=== PATIENT | female | born 1960 | race Caucasian/White ===

== ENCOUNTER → 2016-11-13 | Outpatient (CLI) | payer OTHER ==
[2016-11-13 13:36] LABS: ALBUMIN 3.5 GM/DL (3.2-5.2); ALBUMIN/GLOBULIN RATIO 1.09 (1.00-1.93); ALKALINE PHOSPHATASE 75 U/L (45-117); ALT/SGPT 23 U/L (12-78); ANION GAP 8 MEQ/L (8-16); AST/SGOT 9 U/L (15-37); BILIRUBIN,TOTAL 0.4 MG/DL (0.2-1.0); BLOOD UREA NITROGEN 14 MG/DL (7-18); CALCIUM LEVEL 8.4 MG/DL (8.5-10.1); CARBON DIOXIDE LEVEL 28 MEQ/L (21-32); CHLORIDE LEVEL 109 MEQ/L (98-107); CHOLESTEROL LEVEL 238 MG/DL (< 200); CREATININE FOR GFR 0.72 MG/DL (0.55-1.02); FREE T4 0.95 NG/DL (0.76-1.46); GLOMERULAR FILTRATION RATE > 60.0 (>51); GLUCOSE, FASTING 88 MG/DL (70-105); POTASSIUM SERUM 4.4 MEQ/L (3.5-5.1); SODIUM LEVEL 145 MEQ/L (136-145); TOTAL PROTEIN 6.7 GM/DL (6.4-8.2)
[2016-11-13 20:57] LABS: FOLLICLE STIMULATING HORMONE 37.8 mIU/mL; LUTEINIZING HORMONE 18.6 mIU/mL
== END ==
LOC: M WUC 10:34
PROVIDERS: ATTEND Nurse Practitioner Women's Health
DX: N95.8 Other specified menopausal and perimenopausal disorders (principal); R53.83 Other fatigue; F41.9 Anxiety disorder, unspecified; E66.01 Morbid (severe) obesity due to excess calories

== ENCOUNTER 2016-12-21 10:18 | Emergency (ER) | payer OTHER ==
[2016-12-21] MEDS ORDERED: KETOROLAC 30 MG/ML VIAL (J1885) As Ordered ONE (11:26)
--- NOTE | 2016-12-21 12:53 | REP ---
Clinical: Trauma. Technique: AP, lateral, bilateral oblique views of the left foot. Findings: Age-related degenerative changes are appreciated. No acute fracture or dislocation identified. Impression: Degenerative changes. No acute fracture or dislocation appreciated. Signed by Keith Cuadra MD 12/21/2016 12:45 P
--- NOTE | 2016-12-21 12:54 | REP ---
Clinical: Trauma. Technique: AP, lateral, bilateral oblique views of the left ankle. Findings: Age-related degenerative changes are appreciated including small to moderate calcaneal heal spur. No acute fracture dislocation. Impression: Age-related degenerative changes without obvious acute fracture or dislocation Signed by Keith Cuadra MD 12/21/2016 12:45 P
--- NOTE | 2016-12-21 13:49 | EDDOCDS ---
Nurse's Notes [facility] Name: Christina Payan Age: 55 yrs Sex: Female : 1960 Arrival Date: 12/21/2016 Time: 10:18 Bed TR8 Private MD: NO PRIMARY PHYSICIAN, . Diagnosis: Sprain of ankle-Left;Other sprain of left foot Presentation: 12/21 10:35 Presenting complaint: Patient states: Fell last night (mechanical fall) injuring jo3 Achilles tendon on left foot. Adult Sepsis Screening: The patient does not have new or worsening altered mentation. Patient's respiratory rate is less than 22. Systolic blood pressure is greater than 100. Patient has a qSOFA score of 0- Negative Sepsis Screen. Suicide/Homicide risk assessment- the patient denies having any suicidal and/or homicidal ideations and does not present with any other emotional, behavioral or mental health complaints. 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 Transition of care: patient was not received from another setting of care. 10:35 Acuity: DEENA Level 4 jo3 10:35 Method Of Arrival: Walkin/Carried/Asstd jo3 Triage Assessment: 10:38 General: Appears in no apparent distress, comfortable, Behavior is appropriate for age, jo3 cooperative. Pain: Pain currently is 8 out of 10 on a pain scale. At worst was 9 out of 10 on a pain scale. HIV screening NA for this visit Offered previously. Neurological: Level of Consciousness is awake, alert, Oriented to person, place, time. Respiratory: No deficits noted. Airway is patent Respiratory effort is even, unlabored. Derm: Skin is pink, warm & dry. 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 Protonix 80 mg Oral TbEC once daily - PMHx: GERD; - PSHx: left knee; Laparoscopy; Tonsillectomy; Rhinoplasty; Adenoidectomy; Hysterectomy; - Social history: Smoking status: Patient states was never smoker of tobacco. No barriers to communication noted, The patient speaks fluent Puerto Rican, Speaks appropriately for age. - Family history: Not pertinent. - : The pt / caregiver states he / she is not on anticoagulants. Home medication list is obtained from the patient. - Exposure Risk Screening:: None identified. Screenin:57 Screening information is obtained from the patient. Fall risk: No risks identified. ck1 Assistance ADL's: requires no assistance with activities of daily living. Abuse/DV Screen: The patient / caregiver reports he/she is: not in a situation that causes fear, pain or injury. Nutritional screening: No deficits noted. Advance Directives: Currently, there is no health care proxy. home support is adequate. Assessment: 12:57 General: Patient reporting increased pain to left calf. Provider aware. ck1 13:46 General: Appears in no apparent distress, comfortable, Behavior is appropriate for age, jo3 cooperative. Neurological: No deficits noted. Level of Consciousness is awake, alert, Oriented to person, place, time. Respiratory: Airway is patent Respiratory effort is even, unlabored. Derm: Skin is pink, warm & dry. Vital Signs: 10:20 BP 123 / 67; Pulse 78; Resp 18; Temp 98.3(O); Pulse Ox 98% on R/A; Weight 105.69 kg ct3 (R); Height 5 ft. 5 in. (165.10 cm) (R); Pain 7/10; 13:40 BP 132 / 70; Pulse 80; Resp 18; Temp 97.8(T); Pulse Ox 98% on R/A; Pain 5/10; jb5 10:20 Body Mass Index 38.77 (105.69 kg, 165.10 cm) ct3 Vitals: 10:20 Log In Time: December 21, 2016 at 10:17. ct3 ED Course: 10:20 Patient visited by Nona Madden PCA. ct3 10:20 NO PRIMARY PHYSICIAN, . is Private Physician. ct3 10:20 Patient moved to Waiting ct3 10:21 Patient moved to Pre RCE ct3 10:37 Triage Initiated jo3 10:40 Patient moved to Triage 1 jo3 10:55 Patient visited by Mami Silverman PCA. jb5 10:58 Madelyn Villasenor PA-C is PHCP. ef1 10:59 Francisco Carreon MD is Attending Physician. ef1 10:59 Patient visited by Madelyn Villasenor PA-C. ef1 11:22 Patient visited by Madelyn Vlilasenor PA-C. ef1 11:33 Patient moved to TR1 jb5 11:57 Patient visited by Madelyn Villasenor PA-C. ef1 12:13 [facility] Payment Agreement was scanned into [employer] and attached to record. jp5 12:31 Patient visited by Madelyn Villasenor PA-C. ef1 12:57 The patient / caregiver is instructed regarding the plan of care and ED course. ck1 12:57 No IV's were initiated during this patient's visit. No procedures done that require ck1 assistance. 13:02 Patient visited by Madelyn Villasenor PA-C. ef1 13:15 [facility]. ef1 13:15 [facility] is Referral Physician. ef1 13:23 Patient moved to PR ck1 13:23 Foot, Complete Returned. EDMS 13:23 Ankle, Complete Returned. EDMS 13:41 Patient visited by Mami Silverman PCA. jb5 13:47 Patient moved to TR8 jb5 Administered Medications: 11:34 Drug: ketorolac 60 mg [ketorolac 30 mg/mL (1 mL) injection solution (2 mL)] Route: IM; jo3 Site: right gluteus; Order Results: Radiology Order: Foot, Complete Test: Foot, Complete REASON FOR EXAMINATION: Trauma; Clinical: Trauma.; ; Technique: AP, lateral, bilateral oblique views of the left foot.; ; Findings:; Age-related degenerative changes are appreciated. No acute fracture or; dislocation identified.; ; Impression:; Degenerative changes. No acute fracture or dislocation appreciated.; ; ; Signed by; Keith Cuadra MD 12/21/2016 12:45 P; Radiology Order: Ankle, Complete Test: Ankle, Complete REASON FOR EXAMINATION: Trauma; Clinical: Trauma.; ; Technique: AP, lateral, bilateral oblique views of the left ankle.; ; Findings:; Age-related degenerative changes are appreciated including small to moderate; calcaneal heal spur. No acute fracture dislocation.; ; Impression:; Age-related degenerative changes without obvious acute fracture or dislocation; ; ; Signed by; Keith Cuadra MD 12/21/2016 12:45 P; Outcome: 13:15 Discharge ordered by Provider. ef1 13:46 Discharge Assessment: Patient awake, alert and oriented x 3. No cognitive and/or jo3 functional deficits noted. Patient verbalized understanding of disposition instructions. patient administered narcotics - no. The following High Risk Discharge criteria are identified: None. Discharged to home ambulatory, with crutches. Condition: stable. Discharge instructions given to patient, Instructed on discharge instructions, follow up and referral plans. medication usage, crutch walking. No special radiology studies were completed. Property sent home with patient. 13:47 Patient left the ED. jo3 Signatures: Dispatcher [employer] EDUT Nesha MotaRN RN ck1 Mami Silverman, SECURITY PROJECT MANAGER SECURITY PROJECT MANAGER jb5 Do HagerRN RN jo3 Madelyn Villasenor, PA-C PA-C ef1 Nona Madden, SECURITY PROJECT MANAGER SECURITY PROJECT MANAGER ct3 Thomas Ospina jp5 Corrections: (The following items were deleted from the chart) 12:57 12:30 Pain: ck1 ck1 MTDD
--- NOTE | 2016-12-21 13:49 | EDDOCDS ---
Physician Documentation [facility] Name: Christina Payan Age: 55 yrs Sex: Female : 1960 Arrival Date: 12/21/2016 Time: 10:18 Bed TR8 Private MD: NO PRIMARY PHYSICIAN, . Disposition: 12/21/16 13:15 Discharged to Home/Self Care. Impression: Sprain of ankle - Left, Other sprain of left foot. - Condition is Stable. - Discharge Instructions: Ankle Sprain, Ihko-by-Ilht, Finger Sprain, Iwzs-da-Vlsc. - Prescriptions for Mobic 7.5 mg Oral Tablet - take 1 tablet by ORAL route once daily take with food; 20 tablet. - Medication Reconciliation, Local Pharmacy Hours, Referral List Call for Appointment form. - Follow up: [facility]; When: 1 - 2 days; Reason: Further diagnostic work-up, Recheck today's complaints, Continuance of care. Follow [facility]: [facility] ; When: 1 - 2 days; Reason: Recheck today's complaints, Continuance of care. Follow up: Emergency Department; Reason: Worsening of conditions. - Problem is new. - Symptoms have improved. Historical: - Allergies: Avelox; Compazine; Levaquin; Most antiemetic, except Zofran; Demerol; - Home Meds: 1. Protonix 80 mg Oral TbEC once daily - PMHx: GERD; - PSHx: left knee; Laparoscopy; Tonsillectomy; Rhinoplasty; Adenoidectomy; Hysterectomy; - Social history: Smoking status: Patient states was never smoker of tobacco. No barriers to communication noted, The patient speaks fluent Bengali, Speaks appropriately for age. - Family history: Not pertinent. - : The pt / caregiver states he / she is not on anticoagulants. Home medication list is obtained from the patient. - Exposure Risk Screening:: None identified. 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 5 in. (165.10 cm) (R); Pain 7/10; 13:40 BP 132 / 70; Pulse 80; Resp 18; Temp 97.8(T); Pulse Ox 98% on R/A; Pain 5/10; jb5 10:20 Body Mass Index 38.77 (105.69 kg, 165.10 cm) ct3 Procedures: 13:14 Fracture care/splinting: Splint applied to left Achilles using Air Cast, applied by ef1 tech. Examined by me, post splint application: neurovascular intact, 2+ distal pulses palpable, brisk capillary refill noted, Patient tolerated well. MDM: 11:23 Ice Pack ordered. ef1 11:23 ketorolac 60 mg IM once ordered. ef1 11:24 Foot, Complete Ordered. EDMS 11:24 Ankle, Complete Ordered. EDMS 12:11 Financial registration complete. mm15 12:13 [facility] Payment Agreement was scanned into [employer] and attached to record. jp5 12:13 Undo -Financial registration. jp5 12:13 Financial registration complete. jp5 13:15 Apply Air Cast to Patient. ordered. ef1 13:15 Crutches ordered. ef1 Administered Medications: 11:34 Drug: ketorolac 60 mg [ketorolac 30 mg/mL (1 mL) injection solution (2 mL)] Route: IM; jo3 Site: right gluteus; Signatures: Dispatcher [employer] EDNesha Brandon,RN RN ck1 Do Hager RN RN jo3 Madelyn Villasenor, PA-C PA-Jonathan ef1 Annalisa Renteria mm15 Thomas Ospina jp5 The chart was reviewed and I authenticate all verbal orders and agree with the evaluation and treatment provided.Attachments: 12:13 [facility] Payment Agreement jp5 MTDD
--- NOTE | 2016-12-23 14:48 | EDDOCDS ---
Physician Documentation [facility] Name: Christina Payan Age: 55 yrs Sex: Female : 1960 Arrival Date: 12/21/2016 Time: 10:18 Bed TR8 Private MD: NO PRIMARY PHYSICIAN, . Disposition: 12/21/16 13:15 Discharged to Home/Self Care. Impression: Sprain of ankle - Left, Other sprain of left foot. - Condition is Stable. - Discharge Instructions: Ankle Sprain, Pjur-bc-Ftno, Finger Sprain, Aatp-vc-Vwjz. - Prescriptions for Mobic 7.5 mg Oral Tablet - take 1 tablet by ORAL route once daily take with food; 20 tablet. - Medication Reconciliation, Local Pharmacy Hours, Referral List Call for Appointment form. - Follow up: [facility]; When: 1 - 2 days; Reason: Further diagnostic work-up, Recheck today's complaints, Continuance of care. Follow [facility]: [facility] ; When: 1 - 2 days; Reason: Recheck today's complaints, Continuance of care. Follow up: Emergency Department; Reason: Worsening of conditions. - Problem is new. - Symptoms have improved. Historical: - Allergies: Avelox; Compazine; Levaquin; Most antiemetic, except Zofran; Demerol; - Home Meds: 1. Protonix 80 mg Oral TbEC once daily - PMHx: GERD; - PSHx: left knee; Laparoscopy; Tonsillectomy; Rhinoplasty; Adenoidectomy; Hysterectomy; - Social history: Smoking status: Patient states was never smoker of tobacco. No barriers to communication noted, The patient speaks fluent Telugu, Speaks appropriately for age. - Family history: Not pertinent. - : The pt / caregiver states he / she is not on anticoagulants. Home medication list is obtained from the patient. - Exposure Risk Screening:: None identified. 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 5 in. (165.10 cm) (R); Pain 7/10; 13:40 BP 132 / 70; Pulse 80; Resp 18; Temp 97.8(T); Pulse Ox 98% on R/A; Pain 5/10; jb5 10:20 Body Mass Index 38.77 (105.69 kg, 165.10 cm) ct3 Procedures: 13:14 Fracture care/splinting: Splint applied to left Achilles using Air Cast, applied by ef1 tech. Examined by me, post splint application: neurovascular intact, 2+ distal pulses palpable, brisk capillary refill noted, Patient tolerated well. MDM: 11:23 Ice Pack ordered. ef1 11:23 ketorolac 60 mg IM once ordered. ef1 11:24 Foot, Complete Ordered. EDMS 11:24 Ankle, Complete Ordered. EDMS 12:11 Financial registration complete. mm15 12:13 [facility] Payment Agreement was scanned into [employer] and attached to record. jp5 12:13 Undo -Financial registration. jp5 12:13 Financial registration complete. jp5 13:15 Apply Air Cast to Patient. ordered. ef1 13:15 Crutches ordered. ef1 15:38 T-Sheet-- Draft Copy was scanned into [employer] and attached to record. gb 15:39 Radiology Report was scanned into [employer] and attached to record. gb Administered Medications: 11:34 Drug: ketorolac 60 mg [ketorolac 30 mg/mL (1 mL) injection solution (2 mL)] Route: IM; jo3 Site: right gluteus; Signatures: Dispatcher [employer] EDNC Shazia Denson, Reg Reg gb Nesha MotaRN RN ck1 Do Hager RN RN jo3 Madelyn Villasenor, PA-Jonathan PA-Jonathan ef1 Annalisa Renteria mm15 Thomas Ospina jp5 The chart was reviewed and I authenticate all verbal orders and agree with the evaluation and treatment provided.Attachments: 12:13 [facility] Payment Agreement jp5 15:38 T-Sheet-- Draft Copy gb Chart Complete MTDD
--- NOTE | 2016-12-23 14:48 | EDDOCDS ---
Physician Documentation [facility] Name: Christina Payan Age: 55 yrs Sex: Female : 1960 Arrival Date: 12/21/2016 Time: 10:18 Bed TR8 Private MD: NO PRIMARY PHYSICIAN, . Disposition: 12/21/16 13:15 Discharged to Home/Self Care. Impression: Sprain of ankle - Left, Other sprain of left foot. - Condition is Stable. - Discharge Instructions: Ankle Sprain, Vrpx-cb-Byxy, Finger Sprain, Ouba-dv-Qria. - Prescriptions for Mobic 7.5 mg Oral Tablet - take 1 tablet by ORAL route once daily take with food; 20 tablet. - Medication Reconciliation, Local Pharmacy Hours, Referral List Call for Appointment form. - Follow up: [facility]; When: 1 - 2 days; Reason: Further diagnostic work-up, Recheck today's complaints, Continuance of care. Follow up: [facility] ; When: 1 - 2 days; Reason: Recheck today's complaints, Continuance of care. Follow up: Emergency Department; Reason: Worsening of conditions. - Problem is new. - Symptoms have improved. Historical: - Allergies: Avelox; Compazine; Levaquin; Most antiemetic, except Zofran; Demerol; - Home Meds: 1. Protonix 80 mg Oral TbEC once daily - PMHx: GERD; - PSHx: left knee; Laparoscopy; Tonsillectomy; Rhinoplasty; Adenoidectomy; Hysterectomy; - Social history: Smoking status: Patient states was never smoker of tobacco. No barriers to communication noted, The patient speaks fluent Lao, Speaks appropriately for age. - Family history: Not pertinent. - : The pt / caregiver states he / she is not on anticoagulants. Home medication list is obtained from the patient. - Exposure Risk Screening:: None identified. 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 5 in. (165.10 cm) (R); Pain 7/10; 13:40 BP 132 / 70; Pulse 80; Resp 18; Temp 97.8(T); Pulse Ox 98% on R/A; Pain 5/10; jb5 10:20 Body Mass Index 38.77 (105.69 kg, 165.10 cm) ct3 Procedures: 13:14 Fracture care/splinting: Splint applied to left Achilles using Air Cast, applied by ef1 tech. Examined by me, post splint application: neurovascular intact, 2+ distal pulses palpable, brisk capillary refill noted, Patient tolerated well. MDM: 11:23 Ice Pack ordered. ef1 11:23 ketorolac 60 mg IM once ordered. ef1 11:24 Foot, Complete Ordered. EDMS 11:24 Ankle, Complete Ordered. EDMS 12:11 Financial registration complete. mm15 12:13 [facility] Payment Agreement was scanned into [employer] and attached to record. jp5 12:13 Undo -Financial registration. jp5 12:13 Financial registration complete. jp5 13:15 Apply Air Cast to Patient. ordered. ef1 13:15 Crutches ordered. ef1 15:38 T-Sheet-- Draft Copy was scanned into [employer] and attached to record. gb 15:39 Radiology Report was scanned into [employer] and attached to record. gb Administered Medications: 11:34 Drug: ketorolac 60 mg [ketorolac 30 mg/mL (1 mL) injection solution (2 mL)] Route: IM; jo3 Site: right gluteus; Signatures: Dispatcher [employer] EDNC Shazia Denson, Reg Reg gb Nesha MotaRN RN ck1 Do Hager RN RN jo3 Madelyn Villasenor, PA-Jonathan PA-Jonathan ef1 Annalisa Renteria mm15 Thomas Ospina jp5 The chart was reviewed and I authenticate all verbal orders and agree with the evaluation and treatment provided.Attachments: 12:13 [facility] Payment Agreement jp5 15:38 T-Sheet-- Draft Copy gb Chart Complete MTDD
--- NOTE | 2016-12-23 14:48 | EDDOCDS ---
Nurse's Notes [facility] Name: Christina Payan Age: 55 yrs Sex: Female : 1960 Arrival Date: 12/21/2016 Time: 10:18 Bed TR8 Private MD: NO PRIMARY PHYSICIAN, . Diagnosis: Sprain of ankle-Left;Other sprain of left foot Presentation: 12/21 10:35 Presenting complaint: Patient states: Fell last night (mechanical fall) injuring jo3 Achilles tendon on left foot. Adult Sepsis Screening: The patient does not have new or worsening altered mentation. Patient's respiratory rate is less than 22. Systolic blood pressure is greater than 100. Patient has a qSOFA score of 0- Negative Sepsis Screen. Suicide/Homicide risk assessment- the patient denies having any suicidal and/or homicidal ideations and does not present with any other emotional, behavioral or mental health complaints. 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 Transition of care: patient was not received from another setting of care. 10:35 Acuity: DEENA Level 4 jo3 10:35 Method Of Arrival: Walkin/Carried/Asstd jo3 Triage Assessment: 10:38 General: Appears in no apparent distress, comfortable, Behavior is appropriate for age, jo3 cooperative. Pain: Pain currently is 8 out of 10 on a pain scale. At worst was 9 out of 10 on a pain scale. HIV screening NA for this visit Offered previously. Neurological: Level of Consciousness is awake, alert, Oriented to person, place, time. Respiratory: No deficits noted. Airway is patent Respiratory effort is even, unlabored. Derm: Skin is pink, warm & dry. 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 Protonix 80 mg Oral TbEC once daily - PMHx: GERD; - PSHx: left knee; Laparoscopy; Tonsillectomy; Rhinoplasty; Adenoidectomy; Hysterectomy; - Social history: Smoking status: Patient states was never smoker of tobacco. No barriers to communication noted, The patient speaks fluent Omani, Speaks appropriately for age. - Family history: Not pertinent. - : The pt / caregiver states he / she is not on anticoagulants. Home medication list is obtained from the patient. - Exposure Risk Screening:: None identified. Screenin:57 Screening information is obtained from the patient. Fall risk: No risks identified. ck1 Assistance ADL's: requires no assistance with activities of daily living. Abuse/DV Screen: The patient / caregiver reports he/she is: not in a situation that causes fear, pain or injury. Nutritional screening: No deficits noted. Advance Directives: Currently, there is no health care proxy. home support is adequate. Assessment: 12:57 General: Patient reporting increased pain to left calf. Provider aware. ck1 13:46 General: Appears in no apparent distress, comfortable, Behavior is appropriate for age, jo3 cooperative. Neurological: No deficits noted. Level of Consciousness is awake, alert, Oriented to person, place, time. Respiratory: Airway is patent Respiratory effort is even, unlabored. Derm: Skin is pink, warm & dry. Vital Signs: 10:20 BP 123 / 67; Pulse 78; Resp 18; Temp 98.3(O); Pulse Ox 98% on R/A; Weight 105.69 kg ct3 (R); Height 5 ft. 5 in. (165.10 cm) (R); Pain 7/10; 13:40 BP 132 / 70; Pulse 80; Resp 18; Temp 97.8(T); Pulse Ox 98% on R/A; Pain 5/10; jb5 10:20 Body Mass Index 38.77 (105.69 kg, 165.10 cm) ct3 Vitals: 10:20 Log In Time: December 21, 2016 at 10:17. ct3 ED Course: 10:20 Patient visited by Nona Madden PCA. ct3 10:20 NO PRIMARY PHYSICIAN, . is Private Physician. ct3 10:20 Patient moved to Waiting ct3 10:21 Patient moved to Pre RCE ct3 10:37 Triage Initiated jo3 10:40 Patient moved to Triage 1 jo3 10:55 Patient visited by Mami Silverman PCA. jb5 10:58 Madelyn Villasenor PA-C is PHCP. ef1 10:59 Francisco Carreon MD is Attending Physician. ef1 10:59 Patient visited by Madelyn Villasenor PA-C. ef1 11:22 Patient visited by Madelyn Villasenor PA-C. ef1 11:33 Patient moved to TR1 jb5 11:57 Patient visited by Madelyn Villasenor PA-C. ef1 12:13 [facility] Payment Agreement was scanned into [employer] and attached to record. jp5 12:31 Patient visited by Madelyn Villasenor PA-C. ef1 12:57 The patient / caregiver is instructed regarding the plan of care and ED course. ck1 12:57 No IV's were initiated during this patient's visit. No procedures done that require ck1 assistance. 13:02 Patient visited by Madelyn Villasenor PA-C. ef1 13:15 [facility]. ef1 13:15 [facility] is Referral Physician. ef1 13:23 Patient moved to PR ck1 13:23 Foot, Complete Returned. EDMS 13:23 Ankle, Complete Returned. EDMS 13:41 Patient visited by Mami Silverman PCA. jb5 13:47 Patient moved to TR8 jb5 15:38 T-Sheet-- Draft Copy was scanned into [employer] and attached to record. gb 15:39 Radiology Report was scanned into [employer] and attached to record. gb Administered Medications: 11:34 Drug: ketorolac 60 mg [ketorolac 30 mg/mL (1 mL) injection solution (2 mL)] Route: IM; jo3 Site: right gluteus; Order Results: Radiology Order: Foot, Complete Test: Foot, Complete REASON FOR EXAMINATION: Trauma; Clinical: Trauma.; ; Technique: AP, lateral, bilateral oblique views of the left foot.; ; Findings:; Age-related degenerative changes are appreciated. No acute fracture or; dislocation identified.; ; Impression:; Degenerative changes. No acute fracture or dislocation appreciated.; ; ; Signed by; Keith Cuadra MD 12/21/2016 12:45 P; Radiology Order: Ankle, Complete Test: Ankle, Complete REASON FOR EXAMINATION: Trauma; Clinical: Trauma.; ; Technique: AP, lateral, bilateral oblique views of the left ankle.; ; Findings:; Age-related degenerative changes are appreciated including small to moderate; calcaneal heal spur. No acute fracture dislocation.; ; Impression:; Age-related degenerative changes without obvious acute fracture or dislocation; ; ; Signed by; Keith Cuadra MD 12/21/2016 12:45 P; Outcome: 13:15 Discharge ordered by Provider. ef1 13:46 Discharge Assessment: Patient awake, alert and oriented x 3. No cognitive and/or jo3 functional deficits noted. Patient verbalized understanding of disposition instructions. patient administered narcotics - no. The following High Risk Discharge criteria are identified: None. Discharged to home ambulatory, with crutches. Condition: stable. Discharge instructions given to patient, Instructed on discharge instructions, follow up and referral plans. medication usage, crutch walking. No special radiology studies were completed. Property sent home with patient. 13:47 Patient left the ED. jo3 Signatures: Dispatcher [employer] EDMS Shazia Denson, Reg Reg Nesha Lemus,RN RN ck1 Mami Silverman, RECOVERY MANAGER RECOVERY MANAGER jb5 Do Hager RN RN jo3 Madelyn Villasenor, PA-C PA-C ef1 Nona Madden, RECOVERY MANAGER RECOVERY MANAGER ct3 Thomas Ospina jp5 Corrections: (The following items were deleted from the chart) 12:57 12:30 Pain: ck1 ck1 Chart Complete MTDD
== END 2016-12-21 13:47 | disposition home or self-care (01) ==
LOC: M ED 10:18
DX: S93.402A Sprain of unspecified ligament of left ankle, initial encounter (principal); S93.602A Unspecified sprain of left foot, initial encounter; X58.XXXA Exposure to other specified factors, initial encounter; Y92.019 Unspecified place in single-family (private) house as the place of occurrence of the external cause; Y93.89 Activity, other specified; Y99.8 Other external cause status; K21.9 Gastro-esophageal reflux disease without esophagitis; Z79.899 Other long term (current) drug therapy; Z88.8 Allergy status to other drugs, medicaments and biological substances
CPT/HCPCS: 73610; 73630; 96372; 99283; J1885

== ENCOUNTER → 2017-01-01 | Outpatient (CLI) | payer OTHER ==
--- NOTE | 2017-01-02 13:07 | SLEEPCENT ---
DATE OF PROCEDURE: 01/01/2017 ORDERED BY: Dr. Albert Nocturnal polysomnography was performed for retitration of pressure therapy. For testing, a ResMed Quattro FX full face mask extra small size was used and 13 cm of water pressure were applied to the circuit and the lights were extinguished. 7 hours and 5 minutes of data were reviewed. There were 206 minutes of sleep identified. Sleep latency was prolonged at 41 minutes. Rapid eye movement (REM) latency was likewise prolonged at 188 minutes. Sleep architecture showed fragmentation and poor progression. There was 1 REM period appreciated around 3:00 a.m. with periods of wake that resulted in a reduced sleep efficiency of 49.6%. REM time was reduced and there was no N3 sleep seen. The patient's electrocardiogram (EKG) showed a sinus rhythm with an average heart rate of 65 beats per minute. Heart rate ranged 55 to 90 beats per minute. Electroencephalogram (EEG) showed some mild coarsening in background. No focal events were identified. Respiratory events were fully palliated with CPAP at a pressure of 13 cm. There was no significant snoring nor arousals from respiratory events. Significant limb activity was however appreciated and many of the arousals and episodes of fragmentation could be tied to limb events. Limb movement arousal index was 23.5. Oxygen saturations with CPAP were 90% plus. IMPRESSION: 1. Obstructive sleep apnea syndrome (G47.33). 2. Periodic limb movement disorder (G47.61), limb movement arousal index 25.3. RECOMMENDATION: Nightly use of pressure therapy at 13 cm of water was sufficient to address the patient's respiratory events. Interventions to reduce the frequency or arousal from limb activity will likely be needed to improve continuity in sleep.
== END ==
LOC: M SLEEP 19:51
PROVIDERS: ATTEND Internal Medicine Pulmonary Disease
DX: G47.33 Obstructive sleep apnea (adult) (pediatric) (principal)

== ENCOUNTER 2017-01-04 16:34 | Emergency (ER) | payer OTHER ==
[~2017-01-04] VITALS: Ht 165.1 cm; Wt 109.3 kg
[2017-01-04] MEDS ORDERED: PROT1TAB2 PO (16:55)
[2017-01-04] MEDS ORDERED: ASPIRIN 81 MG CHEW TABLET PO ONE (18:00)
[2017-01-04 18:04] LABS: BASO % 0.6 % (0.0-1.0); EOS # 0.1 K/mm3 (0.0-0.50); EOS % 1.6 % (0.0-3.0); LARGE UNSTAINED CELL # 0.1 K/mm3 (0.0-0.4); LARGE UNSTAINED CELL % 1.3 % (0.0-4.0); LYMPH # 2.3 K/mm3 (1.5-4.5); LYMPH % 31.3 % (24.0-44.0); MEAN CORPUSCULAR HEMOGLOBIN 28.9 pg (27.0-33.0); MEAN CORPUSCULAR HGB CONC 33.4 g/dl (32.0-36.5); MEAN CORPUSCULAR VOLUME 86.5 fl (80.0-96.0); MONO # 0.2 K/mm3 (0.0-0.8); MONO % 2.8 % (0.0-5.0); NEUTROPHILS # 4.5 K/mm3 (1.8-7.7); NEUTROPHILS % 62.4 % (36.0-66.0); PLATELET COUNT, AUTOMATED 277 k/mm3 (150-450); RED CELL DISTRIBUTION WIDTH 12.6 % (11.5-14.5); WHITE BLOOD COUNT 7.2 K/mm3 (4.0-10.0)
[2017-01-04 18:36] LABS: ALBUMIN 3.9 GM/DL (3.2-5.2); ALBUMIN/GLOBULIN RATIO 1.26 (1.00-1.93); ALKALINE PHOSPHATASE 82 U/L (45-117); ALT/SGPT 25 U/L (12-78); ANION GAP 9 MEQ/L (8-16); AST/SGOT 18 U/L (15-37); BILIRUBIN,DIRECT 0.1 MG/DL (0.0-0.2); BILIRUBIN,TOTAL 0.5 MG/DL (0.2-1.0); BLOOD UREA NITROGEN 10 MG/DL (7-18); CALCIUM LEVEL 8.3 MG/DL (8.5-10.1); CARBON DIOXIDE LEVEL 28 MEQ/L (21-32); CHLORIDE LEVEL 106 MEQ/L (98-107); CREATININE FOR GFR 0.81 MG/DL (0.55-1.02); FREE T4 1.16 NG/DL (0.76-1.46); GLOMERULAR FILTRATION RATE > 60.0 (>51); GLUCOSE, FASTING 83 MG/DL (70-105); SODIUM LEVEL 143 MEQ/L (136-145)
--- NOTE | 2017-01-04 18:45 | REP ---
CHEST, PORTABLE: HISTORY: Chest pain. COMPARISON: 10/18/2015 FINDINGS: The technique utilized in obtaining the radiograph has magnified the cardiac silhouette and accentuated the interstitial markings. The superior mediastinal structures are midline. The cardiac silhouette is unremarkable in size, shape, and position. The diaphragmatic surfaces of the lungs are regular, and the costophrenic angles are clear. The pulmonary muller are clear. The imaged osseous structures are intact. IMPRESSION: There is no acute cardiopulmonary disease. No significant change from the prior exam. Signed by Anuj Cowan DO 01/04/2017 07:09 P
[2017-01-04] MEDS ORDERED: ISOVUE-370 76% 100ML VIAL (Q9967) As Ordered ONE (19:05)
--- NOTE | 2017-01-04 19:44 | REP ---
CT ANGIO CHEST: HISTORY: Dyspnea and chest pain. Possible pulmonary embolus. COMPARISON: 05/11/2011. CONTRAST: 100 mL Isovue-370. There is excellent visualization of the pulmonary arterial vasculature. There are no focal filling defects present that would be considered consistent with pulmonary emboli. There is no mediastinal or hilar adenopathy. There are no pleural or pericardial effusions. The imaged upper abdomen is within normal limits. The imaged osseous structures are within normal limits. Evaluation of the lung muller are clear and unchanged from the prior examination showing no abnormal nodules, masses, or opacities. IMPRESSION: CT findings are within normal limits. Signed by Anuj Cowan DO 01/04/2017 07:49 P
[2017-01-04 20:22] VITALS: BP 140/63
[2017-01-04] MEDS ORDERED: BENZONATATE 100 MG CAP PO ONE (22:00)
[2017-01-04] MEDS ORDERED: predniSONE 20 MG TAB PO ONE (22:00)
[2017-01-04] MEDS ORDERED: PRED20TA PO (22:04)
[2017-01-04] MEDS ORDERED: TESS100C PO (22:05)
--- NOTE | 2017-01-06 12:13 | ECGEPIP ---
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
--- NOTE | 2017-01-06 12:13 | ECGEPIP ---
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
== END 2017-01-04 22:24 | disposition home or self-care (01) ==
LOC: M ED 18:13
DX: J20.9 Acute bronchitis, unspecified (principal); K21.9 Gastro-esophageal reflux disease without esophagitis; Z79.899 Other long term (current) drug therapy; Z88.8 Allergy status to other drugs, medicaments and biological substances; Z88.5 Allergy status to narcotic agent
CPT/HCPCS: 36415; 71010; 71275; 80048; 80076; 82550; 82553; 83690; 84439; 84443; 85025; 93005; 93041; 94760; 99285; Q9967

== ENCOUNTER 2017-03-03 14:20 | Emergency (ER) | payer OTHER ==
[~2017-03-03] VITALS: Ht 165.1 cm; Wt 104.3 kg
[2017-03-03 14:20] VITALS: BP 156/86
[~2017-03-03 14:20] MED LIST: PRED20TA PO; PROT1TAB2 PO; TESS100C PO
[2017-03-03] MEDS ORDERED: BACITRACIN OINT 30GM TOP SCH (21:00)
== END 2017-03-03 15:02 | disposition home or self-care (01) ==
LOC: M ED 14:59
DX: S61.212A Laceration without foreign body of right middle finger without damage to nail, initial encounter (principal); W25.XXXA Contact with sharp glass, initial encounter; Y92.019 Unspecified place in single-family (private) house as the place of occurrence of the external cause; Y93.89 Activity, other specified; Y99.8 Other external cause status; Z88.8 Allergy status to other drugs, medicaments and biological substances; Z79.899 Other long term (current) drug therapy; K21.9 Gastro-esophageal reflux disease without esophagitis; M79.7 Fibromyalgia

== ENCOUNTER 2017-03-15 08:12 | Emergency (ER) | payer OTHER ==
[~2017-03-15] VITALS: Ht 165.1 cm; Wt 112.0 kg
[2017-03-15] MEDS ORDERED: KETOROLAC 60 MG/2 ML VIAL (J1885) IM ONE (08:45)
[2017-03-15 09:46] VITALS: BP 138/86
[2017-03-15] MEDS ORDERED: MOBI7.5T10 PO (09:46)
--- NOTE | 2017-03-15 09:48 | REP ---
LEFT KNEE SERIES: Five views left knee performed. There is no acute fracture or dislocation. There is mild joint space narrowing, subchondral sclerosis, and spurring diffusely. IMPRESSION: Diffuse degenerative changes. No fracture or dislocation. Signed by Saul Brown MD 03/15/2017 04:18 P
[2017-03-15] MEDS ORDERED: PERC5TAB6 PO (09:50)
== END 2017-03-15 10:05 | disposition home or self-care (01) ==
LOC: M ED 08:39
DX: M25.562 Pain in left knee (principal); M17.9 Osteoarthritis of knee, unspecified; W10.2XXA Fall (on)(from) incline, initial encounter; Y92.099 Unspecified place in other non-institutional residence as the place of occurrence of the external cause; Y93.89 Activity, other specified; Y99.9 Unspecified external cause status; E05.90 Thyrotoxicosis, unspecified without thyrotoxic crisis or storm; Z79.899 Other long term (current) drug therapy; Z88.1 Allergy status to other antibiotic agents; Z88.5 Allergy status to narcotic agent; Z88.8 Allergy status to other drugs, medicaments and biological substances
CPT/HCPCS: 73564; 96372; 99282; J1885

== ENCOUNTER 2017-06-29 12:18 | Emergency (ER) | payer OTHER ==
[~2017-06-29] VITALS: Ht 165.1 cm; Wt 105.8 kg
[~2017-06-29 12:18] MED LIST changes: +MOBI4TAB PO; +PERC5TAB12 PO
[2017-06-29] MEDS ORDERED: FAMOTIDINE 20 MG TAB PO ONE (13:45)
[2017-06-29] MEDS ORDERED: methylPREDNISolone INJ 125 MG/2 ML VIAL (J2930) IM ONE (13:45)
[2017-06-29] MEDS ORDERED: PRED20TA PO (13:50)
[2017-06-29] MEDS ORDERED: PEPC1TAB4 PO (13:50)
[2017-06-29 14:02] VITALS: BP 132/60
== END 2017-06-29 14:06 | disposition home or self-care (01) ==
LOC: M ED 12:18
DX: L30.9 Dermatitis, unspecified (principal); E06.3 Autoimmune thyroiditis; E05.90 Thyrotoxicosis, unspecified without thyrotoxic crisis or storm; E04.9 Nontoxic goiter, unspecified; Z79.899 Other long term (current) drug therapy; Z88.8 Allergy status to other drugs, medicaments and biological substances; Z88.5 Allergy status to narcotic agent
CPT/HCPCS: 96372; 99282; J2930

== ENCOUNTER → 2017-08-10 | Outpatient (CLI) | payer OTHER ==
[~2017-08-10] MED LIST changes: +PEPC1TAB4 PO
[2017-08-10 13:32] LABS: BASO # 0.1 10^3/uL (0.0-0.2); BASO % 0.7 % (0.0-1.0); EOS # 0.2 10^3/uL (0.0-0.50); EOS % 2.5 % (0.0-3.0); IMMATURE GRANULOCYTE % 0.2 % (0-0); LYMPH # 2.5 10^3/uL (1.5-4.5); LYMPH % 29.7 % (24.0-44.0); MEAN CORPUSCULAR HEMOGLOBIN 29.1 pg (27.0-33.0); MEAN CORPUSCULAR HGB CONC 32.3 g/dl (32.0-36.5); MEAN CORPUSCULAR VOLUME 90.2 fl (80.0-96.0); MONO # 0.5 10^3/uL (0.0-0.8); MONO % 5.7 % (0.0-5.0); NEUTROPHILS # 5.1 10^3/uL (1.8-7.7); NEUTROPHILS % 61.2 % (36.0-66.0); PLATELET COUNT, AUTOMATED 326 10^3/uL (150-450); RED CELL DISTRIBUTION WIDTH 13.3 % (11.5-14.5); WHITE BLOOD COUNT 8.3 10^3/uL (4.0-10.0)
[2017-08-10 14:00] LABS: ALBUMIN 3.7 GM/DL (3.2-5.2); ALBUMIN/GLOBULIN RATIO 1.12 (1.00-1.93); ALKALINE PHOSPHATASE 75 U/L (45-117); ALT/SGPT 28 U/L (12-78); ANION GAP 7 MEQ/L (8-16); AST/SGOT 14 U/L (15-37); BILIRUBIN,TOTAL 0.3 MG/DL (0.2-1.0); BLOOD UREA NITROGEN 13 MG/DL (7-18); CALCIUM LEVEL 8.2 MG/DL (8.5-10.1); CARBON DIOXIDE LEVEL 29 MEQ/L (21-32); CHLORIDE LEVEL 107 MEQ/L (98-107); CHOLESTEROL LEVEL 248 MG/DL (<200); CREATININE FOR GFR 0.77 MG/DL (0.55-1.02); GLOMERULAR FILTRATION RATE > 60.0 (>51); GLUCOSE, FASTING 96 MG/DL (70-105); POTASSIUM SERUM 4.2 MEQ/L (3.5-5.1); SODIUM LEVEL 143 MEQ/L (136-145); TRIGLYCERIDES LEVEL 144 MG/DL (<150)
== END ==
LOC: M WUC 09:35
PROVIDERS: ATTEND Emergency Medicine
DX: E55.9 Vitamin D deficiency, unspecified (principal)

== ENCOUNTER → 2017-10-22 | Outpatient (CLI) | payer OTHER ==
--- NOTE | 2017-10-22 15:48 | REP ---
Maxillofacial CT study without contrast: History: Atypical facial pain. Comparison study April 24, 2016. Findings: Digital buff wheel fabricator radiographs are unremarkable. The maxillary sinuses are clear. Ethmoidal, frontal and sphenoidal aeration remains normal. Mastoid aeration is normal and symmetric. No abnormality is seen in either petrous bone. The midportion of the inferior turbinate on the right is deficient consistent with partial resection. This is unchanged from the comparison study. No nasal polyp is seen. Bony nasal septum is in the midline. No bony erosive change is appreciated. Ostiomeatal complexes are patent and unremarkable. No skull base lesion is appreciated. No intraorbital abnormality is seen. Impression: Stable changes of the inferior turbinate soft tissues on the right consistent with partial resection. Otherwise unremarkable maxillofacial CT study. Signed by Pierre Watkins MD 10/22/2017 04:15 P
== END ==
LOC: M RAD 14:14
PROVIDERS: ATTEND Otolaryngology
DX: G50.1 Atypical facial pain (principal); Z98.890 Other specified postprocedural states

== ENCOUNTER 2017-11-08 16:29 | Emergency (ER) | payer OTHER ==
[2017-11-08] MEDS: NS 1,000 ML IV (18:16)
[2017-11-08] MEDS: ONDANSETRON 4MG/2ML VIAL (J2405) IV (18:16)
[2017-11-08 18:19] LABS: KETONE, URINE AUTO RFX NEGATIVE (NEGATIVE); LEUKOCYTE ESTERASE UR AUTO RFX NEGATIVE (NEGATIVE); MUCUS, URINE RFX SMALL (NEGATIVE); NITRITE, URINE AUTO RFX NEGATIVE (NEGATIVE); RBC, URINE AUTO RFX 2 /HPF (0-3); SPECIFIC GRAVITY UR AUTO RFX 1.012 (1.002-1.035); SQUAM EPITHELIAL CELL UR AURFX 1 /HPF (0-6); WBC, URINE AUTO RFX 1 /HPF (0-3)
[2017-11-08] MEDS: MORPHINE 4 MG/ML 1ML SYRINGE IV (18:19)
[2017-11-08 18:56] LABS: BASO % 0.4 % (0.0-1.0); EOS # 0.2 10^3/uL (0.0-0.50); EOS % 1.7 % (0.0-3.0); HEMATOCRIT 42.2 % (36.0-47.0); IMMATURE GRANULOCYTE % 0.2 % (0-0); LYMPH # 1.1 10^3/uL (1.5-4.5); LYMPH % 10.5 % (24.0-44.0); MEAN CORPUSCULAR HEMOGLOBIN 29.2 pg (27.0-33.0); MEAN CORPUSCULAR HGB CONC 33.2 g/dl (32.0-36.5); MEAN CORPUSCULAR VOLUME 88.1 fl (80.0-96.0); MONO # 0.3 10^3/uL (0.0-0.8); MONO % 2.6 % (0.0-5.0); NEUTROPHILS # 9.1 10^3/uL (1.8-7.7); NEUTROPHILS % 84.6 % (36.0-66.0); PLATELET COUNT, AUTOMATED 308 10^3/uL (150-450); RED BLOOD COUNT 4.79 10^6/uL (4.00-5.40); WHITE BLOOD COUNT 10.7 10^3/uL (4.0-10.0)
[2017-11-08 19:06] LABS: ALBUMIN 3.4 GM/DL (3.2-5.2); ALKALINE PHOSPHATASE 75 U/L (45-117); ALT/SGPT 23 U/L (12-78); AMYLASE 25 U/L (25-115); ANION GAP 8 MEQ/L (8-16); AST/SGOT 13 U/L (7-37); BILIRUBIN,DIRECT 0.1 MG/DL (0.0-0.2); BILIRUBIN,TOTAL 0.5 MG/DL (0.2-1.0); BLOOD UREA NITROGEN 11 MG/DL (7-18); CALCIUM LEVEL 8.2 MG/DL (8.5-10.1); CARBON DIOXIDE LEVEL 25 MEQ/L (21-32); CHLORIDE LEVEL 109 MEQ/L (98-107); CREATININE FOR GFR 0.63 MG/DL (0.55-1.02); GLOMERULAR FILTRATION RATE > 60.0 (>51); GLUCOSE, FASTING 89 MG/DL (70-105); LIPASE 103 U/L (73-393); SODIUM LEVEL 142 MEQ/L (136-145); TOTAL PROTEIN 6.5 GM/DL (6.4-8.2)
[2017-11-08] MEDS ORDERED: ISOVUE-370 76% 100ML VIAL (Q9967) As Ordered (19:19)
== END 2017-11-08 20:39 | disposition home or self-care (01) ==
LOC: M ED 16:29
DX: S20.222A Contusion of left back wall of thorax, initial encounter (principal); W19.XXXA Unspecified fall, initial encounter; Y92.9 Unspecified place or not applicable; Y93.9 Activity, unspecified; E86.0 Dehydration; R10.12 Left upper quadrant pain; R10.32 Left lower quadrant pain; R11.2 Nausea with vomiting, unspecified; R19.7 Diarrhea, unspecified; K21.9 Gastro-esophageal reflux disease without esophagitis; M54.5 Low back pain; M79.7 Fibromyalgia; Z79.899 Other long term (current) drug therapy; Z88.8 Allergy status to other drugs, medicaments and biological substances
CPT/HCPCS: J2405

== ENCOUNTER → 2017-12-20 | Outpatient (CLI) | payer OTHER ==
[2017-12-20 19:01] LABS: COMPLEMENT C3 130 MG/DL (90-180); COMPLEMENT C4 33.7 MG/DL (10-40); IMMUNOGLOBULIN G 762 MG/DL (681-1648); IMMUNOGLOBULIN M 116 MG/DL (40-230)
[2017-12-20 19:33] LABS: IMMUNOGLOBULIN E < 3.6 IU/ML (<100)
== END ==
LOC: M WUC 13:52
DX: J32.0 Chronic maxillary sinusitis (principal); H10.45 Other chronic allergic conjunctivitis
CPT/HCPCS: 82785

== ENCOUNTER 2017-12-28 02:43 | Emergency (ER) | payer OTHER ==
[2017-12-28] MEDS ORDERED: NAPROXEN 250 MG TAB PO (05:15)
== END 2017-12-28 05:37 | disposition home or self-care (01) ==
LOC: M ED 02:43
DX: M79.604 Pain in right leg (principal); Z79.899 Other long term (current) drug therapy; Z88.5 Allergy status to narcotic agent; Z88.8 Allergy status to other drugs, medicaments and biological substances; Z88.1 Allergy status to other antibiotic agents
CPT/HCPCS: 93971

== ENCOUNTER 2018-02-04 19:56 | Emergency (ER) | payer OTHER | END 2018-02-04 20:28 | disposition left against medical advice (07) | LOC: M ED 19:56 | DX: Z53.29 Procedure and treatment not carried out because of patient's decision for other reasons (principal) ==

== ENCOUNTER 2018-02-05 08:33 | Emergency (ER) | payer OTHER ==
[2018-02-05] MEDS ORDERED: KETOROLAC 30 MG/ML VIAL (J1885) As Ordered (09:21)
[2018-02-05] MEDS: ACETAMINOPHEN 325 MG TAB PO (09:35)
[2018-02-05] MEDS: ONDANSETRON 4 MG ORAL DISINTEGRATING TAB (S0181) PO (09:35)
== END 2018-02-05 10:37 | disposition home or self-care (01) ==
LOC: M ED 08:33
DX: M51.9 Unspecified thoracic, thoracolumbar and lumbosacral intervertebral disc disorder (principal); M54.2 Cervicalgia; K27.9 Peptic ulcer, site unspecified, unspecified as acute or chronic, without hemorrhage or perforation; E03.9 Hypothyroidism, unspecified; Z79.899 Other long term (current) drug therapy; Z88.5 Allergy status to narcotic agent; Z88.8 Allergy status to other drugs, medicaments and biological substances; Z88.1 Allergy status to other antibiotic agents
CPT/HCPCS: 99283

== ENCOUNTER → 2018-04-24 | Outpatient (CLI) | payer OTHER | LOC: M WUC 09:28 | DX: Z00.00 Encounter for general adult medical examination without abnormal findings (principal) | CPT/HCPCS: 36415 ==

== ENCOUNTER → 2018-04-29 | Outpatient (REF) | payer OTHER | LOC: M LAB REF 11:44 | DX: N39.0 Urinary tract infection, site not specified (principal) ==

== ENCOUNTER 2018-05-21 18:11 | Emergency (ER) | payer OTHER ==
[2018-05-21] MEDS: ONDANSETRON 4 MG ORAL DISINTEGRATING TAB (Q0162 PER 1MG) PO (20:12)
[2018-05-21] MEDS: KETOROLAC 60 MG/2 ML VIAL (J1885) IM (20:13)
[2018-05-21] MEDS: MORPHINE 4 MG/ML 1ML VIAL/SYRINGE (J2270) IM (20:13)
[2018-05-21] MEDS: diazePAM 5 MG TAB PO (21:07)
== END 2018-05-21 21:10 | disposition home or self-care (01) ==
LOC: M ED 18:11
DX: M62.838 Other muscle spasm (principal); M25.512 Pain in left shoulder; M54.2 Cervicalgia; Z91.81 History of falling; K21.9 Gastro-esophageal reflux disease without esophagitis; E06.3 Autoimmune thyroiditis; Z88.5 Allergy status to narcotic agent; Z88.1 Allergy status to other antibiotic agents; Z88.8 Allergy status to other drugs, medicaments and biological substances; Z79.899 Other long term (current) drug therapy
CPT/HCPCS: J2270

== ENCOUNTER 2018-07-30 08:49 | Emergency (ER) | payer OTHER | END 2018-07-30 10:03 | disposition home or self-care (01) | LOC: M ED 08:49 | DX: S62.644A Nondisplaced fracture of proximal phalanx of right ring finger, initial encounter for closed fracture (principal); S62.634A Displaced fracture of distal phalanx of right ring finger, initial encounter for closed fracture; W23.0XXA Caught, crushed, jammed, or pinched between moving objects, initial encounter; Y92.099 Unspecified place in other non-institutional residence as the place of occurrence of the external cause; Y93.89 Activity, other specified; Y99.9 Unspecified external cause status; K21.9 Gastro-esophageal reflux disease without esophagitis; M54.9 Dorsalgia, unspecified; Z79.899 Other long term (current) drug therapy; Z88.5 Allergy status to narcotic agent; Z88.8 Allergy status to other drugs, medicaments and biological substances | CPT/HCPCS: 73130 ==

== ENCOUNTER → 2018-08-15 | Outpatient (REF) | payer OTHER | LOC: M LAB REF 17:25 | DX: R30.0 Dysuria (principal) ==

== ENCOUNTER → 2018-08-20 | Outpatient (CLI) | payer OTHER ==
[2018-08-20 13:40] LABS: ESTIMATED AVERAGE GLUCOSE 111 MG/DL (60-110); HEMOGLOBIN A1c 5.5 %
[2018-08-20 13:45] LABS: ALBUMIN 3.5 GM/DL (3.2-5.2); ALBUMIN/GLOBULIN RATIO 1.09 (1.00-1.93); ALKALINE PHOSPHATASE 65 U/L (45-117); ALT/SGPT 21 U/L (12-78); ANION GAP 7 MEQ/L (8-16); AST/SGOT 10 U/L (7-37); BILIRUBIN,TOTAL 0.3 MG/DL (0.2-1.0); BLOOD UREA NITROGEN 12 MG/DL (7-18); CALCIUM LEVEL 8.1 MG/DL (8.5-10.1); CARBON DIOXIDE LEVEL 29 MEQ/L (21-32); CHLORIDE LEVEL 109 MEQ/L (98-107); CHOLESTEROL LEVEL 225 MG/DL (<200); CHOLESTEROL RISK RATIO 4.245 (<5); CREATININE FOR GFR 0.81 MG/DL (0.55-1.30); FREE T4 1.01 NG/DL (0.76-1.46); GLOMERULAR FILTRATION RATE > 60.0 (>51); GLUCOSE, FASTING 90 MG/DL (70-100); HDL CHOLESTEROL 53 MG/DL (>40); LDL CHOLESTEROL 151 MG/DL (<100); NON-HDL-C 172 MG/DL; POTASSIUM SERUM 4.7 MEQ/L (3.5-5.1); SODIUM LEVEL 145 MEQ/L (136-145); TOTAL PROTEIN 6.7 GM/DL (6.4-8.2); TRIGLYCERIDES LEVEL 107 MG/DL (<150)
[2018-08-20 19:24] LABS: TOTAL 25(OH) VITAMIN D 21.9 NG/ML (30.0-100.0)
== END ==
LOC: M WUC 08:45
DX: Z13.1 Encounter for screening for diabetes mellitus (principal); E78.5 Hyperlipidemia, unspecified; E55.9 Vitamin D deficiency, unspecified; R63.5 Abnormal weight gain
CPT/HCPCS: 84443

== ENCOUNTER 2018-09-09 19:46 | Emergency (ER) | payer OTHER ==
[2018-09-09] MEDS: NORCO, ANEXSIA 5/325MG TABLET (HYDROcodone/ACETAMINOPHEN) PO ×2 (21:30→23:45)
== END 2018-09-10 00:05 | disposition home or self-care (01) ==
LOC: M ED 09-10 00:05
DX: S70.01XA Contusion of right hip, initial encounter (principal); W18.39XA Other fall on same level, initial encounter; Y92.018 Other place in single-family (private) house as the place of occurrence of the external cause; K21.9 Gastro-esophageal reflux disease without esophagitis; E06.3 Autoimmune thyroiditis; Z79.899 Other long term (current) drug therapy; Z88.1 Allergy status to other antibiotic agents; Z88.5 Allergy status to narcotic agent; Z88.8 Allergy status to other drugs, medicaments and biological substances
CPT/HCPCS: 73502

== ENCOUNTER 2018-09-13 01:37 | Emergency (ER) | payer OTHER ==
[2018-09-13] MEDS ORDERED: diphenhydrAMINE INJ 50MG/ML VIAL (J1200) As Ordered (02:55)
[2018-09-13] MEDS: diphenhydrAMINE INJ 50MG/ML VIAL (J1200) IM (03:01)
[2018-09-13] MEDS: BENZTROPINE 2 MG TAB PO (04:32)
== END 2018-09-13 05:44 | disposition home or self-care (01) ==
LOC: M ED 01:37
DX: T78.40XA Allergy, unspecified, initial encounter (principal); R51 Headache; X58.XXXA Exposure to other specified factors, initial encounter; Y92.89 Other specified places as the place of occurrence of the external cause; M25.569 Pain in unspecified knee; G89.29 Other chronic pain; K21.9 Gastro-esophageal reflux disease without esophagitis; Z88.5 Allergy status to narcotic agent; Z88.8 Allergy status to other drugs, medicaments and biological substances; Z88.1 Allergy status to other antibiotic agents; Z79.899 Other long term (current) drug therapy
CPT/HCPCS: J1200

== ENCOUNTER → 2018-10-09 | Outpatient (CLI) | payer OTHER ==
[2018-10-09 16:38] LABS: BASO % 0.6 % (0.0-1.0); EOS # 0.2 10^3/uL (0.0-0.50); EOS % 3.4 % (0.0-3.0); HEMOGLOBIN 12.7 g/dl (12.0-15.5); IMMATURE GRANULOCYTE % 0.3 % (0-3.0); LYMPH # 2.4 10^3/uL (1.5-4.5); LYMPH % 36.6 % (24.0-44.0); MEAN CORPUSCULAR HEMOGLOBIN 28.5 pg (27.0-33.0); MEAN CORPUSCULAR HGB CONC 31.8 g/dl (32.0-36.5); MEAN CORPUSCULAR VOLUME 89.9 fl (80.0-96.0); MONO # 0.4 10^3/uL (0.0-0.8); MONO % 6.3 % (0.0-5.0); NEUTROPHILS # 3.4 10^3/uL (1.8-7.7); NEUTROPHILS % 52.8 % (36.0-66.0); PLATELET COUNT, AUTOMATED 307 10^3/uL (150-450); RED BLOOD COUNT 4.45 10^6/uL (4.00-5.40); RED CELL DISTRIBUTION WIDTH 13.3 % (11.5-14.5); WHITE BLOOD COUNT 6.5 10^3/uL (4.0-10.0)
[2018-10-09 16:42] LABS: FERRITIN 112 NG/ML (8-252); IRON (FE) 101 UG/DL (50-170); PERCENT SATURATION 34.6 % (13.2-45.0); TOTAL IRON BINDING CAPACITY 292 UG/DL (250-450)
[2018-10-09 16:50] LABS: VITAMIN B12 LEVEL 820 PG/ML
[2018-10-09 18:13] LABS: FOLATE 9.4 NG/ML
== END ==
LOC: M WUC 11:07
DX: R53.83 Other fatigue (principal)
CPT/HCPCS: 82746

== ENCOUNTER 2018-11-15 13:43 | Emergency (ER) | payer OTHER ==
[~2018-11-15] VITALS: Ht 165.1 cm; Wt 111.4 kg
[~2018-11-15 13:43] MED LIST changes: +CYCL10TA PO; +FLAX100012 PO; +KETO10TAB PO; +NAPR-50 PO; +NORCOTAB PO; -PEPC1TAB4 PO; +PEPC1TAB5 PO; +PHEN-239; +PROBCAP4 PO; +RANI150T PO; +ROBA500T PO; +SUCR1TA PO; +TRAM50TA2 PO; +VALI5TAB PO; +ZOFR4TAB14 PO
[2018-11-15] MEDS ORDERED: predniSONE 20 MG TAB PO ONE (15:15)
[2018-11-15] MEDS ORDERED: AZIT-12 PO (16:54)
[2018-11-15] MEDS ORDERED: PRED20TA PO (16:54)
--- NOTE | 2018-11-15 17:01 | REP ---
CHEST PA AND LATERAL: 11/15/2018. Comparison: Chest x-ray 02/26/2013, CTA chest 01/04/2017. Clinical history: Cough and dyspnea. Findings: The two-view show the lungs adequately inflated. The CP angles are sharply defined. There is no effusion, lateral pleural thickening, apical scarring or pneumothorax. Heart is not enlarged. The aorta and airway are intact. No dense consolidation, nodule or mass in the lung muller. The airway unremarkable. The bony thorax shows no focal lesion. There is no free air under the diaphragm. Impression: 1. No acute cardiopulmonary disease, stable chest. Electronically Signed by Bolivar East MD 11/15/2018 05:07 P
[2018-11-15] MEDS ORDERED: VENTAER INH (17:11)
[2018-11-15] MEDS ORDERED: ALBUTEROL 90 MCG/ACT 8GM HFA INHALER INH ONE (17:15)
[2018-11-15 17:21] VITALS: BP 134/63
--- NOTE | 2018-11-16 07:56 | ECGEPIP ---
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
== END 2018-11-15 17:22 | disposition home or self-care (01) ==
LOC: M ED 13:43
DX: J40 Bronchitis, not specified as acute or chronic (principal); E06.3 Autoimmune thyroiditis; M79.7 Fibromyalgia; K21.9 Gastro-esophageal reflux disease without esophagitis; G47.33 Obstructive sleep apnea (adult) (pediatric); Z79.899 Other long term (current) drug therapy; Z88.5 Allergy status to narcotic agent; Z88.8 Allergy status to other drugs, medicaments and biological substances

== ENCOUNTER 2018-12-10 17:30 | Emergency (ER) | payer OTHER ==
[~2018-12-10] VITALS: Ht 165.1 cm; Wt 113.6 kg
[~2018-12-10 17:30] MED LIST changes: +AZIT-12 PO; +VENTAER INH
[2018-12-10] MEDS ORDERED: VITA50005 (17:40)
[2018-12-10] MEDS ORDERED: FLUTISP (17:40)
[2018-12-10] MEDS ORDERED: PRED20TA PO (18:25)
[2018-12-10] MEDS ORDERED: dexameTHASONE 20 MG/5 ML VIAL (J1100) IM ONE (18:30)
[2018-12-10] MEDS ORDERED: diphenhydrAMINE 25 MG CAP PO ONE (18:30)
[2018-12-10 19:22] VITALS: BP 131/69
--- NOTE | 2018-12-11 09:03 | ECGEPIP ---
Stationary ECG Study [facility] - ED Test Date: 2018-12-10 Pat Name: ALICE ELIZABETH Department: Room: - Gender: F Patient Access: ct : 1960 Requested By: HARDY BAKER Order Number: [id number] Reading MD: Francisco Carreon Measurements Intervals [place] Rate: 80 P: 46 [place]: 157 QRS: -23 QRSD: 100 T: 26 QT: 384 QTc: 445 Interpretive Statements SINUS RHYTHM BORDERLINE LEFT AXIS DEVIATION MINIMAL VOLTAGE CRITERIA FOR LVH, CONSIDER NORMAL VARIANT SIMILAR TO 11/15/18 Electronically Signed On 12-11-2018 9:03:39 EST by Francisco Carreon
== END 2018-12-10 19:32 | disposition home or self-care (01) ==
LOC: M ED 17:30
DX: R22.42 Localized swelling, mass and lump, left lower limb (principal); S80.11XA Contusion of right lower leg, initial encounter; T41.3X5A Adverse effect of local anesthetics, initial encounter; X58.XXXA Exposure to other specified factors, initial encounter; Y92.89 Other specified places as the place of occurrence of the external cause; K21.9 Gastro-esophageal reflux disease without esophagitis; Z79.899 Other long term (current) drug therapy; Z88.1 Allergy status to other antibiotic agents; Z88.5 Allergy status to narcotic agent; Z88.8 Allergy status to other drugs, medicaments and biological substances
CPT/HCPCS: 93005; 96372; 99284; J1100

== ENCOUNTER → 2018-12-13 | Outpatient (REF) | payer OTHER ==
[~2018-12-13] MED LIST changes: +FLUTISP; +VITA50005
[2018-12-13 19:05] LABS: APPEARANCE, URINE HAZY (CLEAR); BACTERIA, URINE AUTO NEGATIVE (NEGATIVE); BILIRUBIN, URINE AUTO NEGATIVE (NEGATIVE); BLOOD, URINE BLOOD NEGATIVE (NEGATIVE); COLOR, URINE YELLOW (YELLOW); GLUCOSE, URINE (UA) AUTO NEGATIVE (NEGATIVE); KETONE, URINE AUTO NEGATIVE (NEGATIVE); LEUKOCYTE ESTERASE, URINE AUTO NEGATIVE (NEGATIVE); MUCUS, URINE SMALL (NEGATIVE); NITRITE, URINE AUTO NEGATIVE (NEGATIVE); PROTEIN, URINE AUTO NEGATIVE (NEGATIVE); RBC, URINE AUTO 0 /HPF (0-3); SPECIFIC GRAVITY URINE AUTO 1.015 (1.002-1.035); SQUAMOUS EPITHELIAL CELL UR AU 3 /HPF (0-6); UROBILINOGEN, URINE AUTO 0.2 mg/dL (0.0-2.0); WBC, URINE AUTO 1 /HPF (0-3)
== END ==
LOC: M SMT 17:03
PROVIDERS: ATTEND Urology Pediatric Urology
DX: R10.2 Pelvic and perineal pain (principal)

== ENCOUNTER → 2018-12-17 | Outpatient (CLI) | payer OTHER ==
[~2018-12-17] MED LIST changes: +E-Z-GAS II EFFERVESCENT PACKET (SODIUM BICARB./CITRIC ACID/SIMETHICONE) As Ordered ONE; +E-Z-HD 98% w/w 340GM SUSP BTL As Ordered ONE; +E-Z-PAQUE 96% w/w SUSP 176GM BTL As Ordered ONE; +IBUP80TA PO
--- NOTE | 2018-12-18 10:43 | REP ---
Esophagram The procedure was performed under the direct supervision of Dr. Brown. The images were reviewed with Dr. Brown. Liquid barium and gas producing granules were given in the erect position as well as liquid barium in the prone oblique positions in order to perform a double contrast esophagram examination. The oral and pharyngeal stages of deglutition are unremarkable. Esophageal transport is prompt and efficient and there is no esophagitis, stricture or mucosal ring. There is a small sliding-type hiatal hernia. Gastroesophageal reflux is not demonstrated on this examination. Impression: there is a small sliding-type hiatal hernia, otherwise, unremarkable double contrast esophagram examination. 0.6 minutes of fluoro time was utilized for this procedure. Reviewed by TRUDY Eden 12/17/2018 04:48 P Electronically Signed by Saul Brown MD 12/18/2018 10:34 A
== END ==
LOC: M RAD 08:38
PROVIDERS: ATTEND Otolaryngology
DX: K21.9 Gastro-esophageal reflux disease without esophagitis (principal); K44.9 Diaphragmatic hernia without obstruction or gangrene

== ENCOUNTER 2018-12-23 05:38 | Emergency (ER) | payer OTHER ==
[~2018-12-23] VITALS: Ht 165.1 cm; Wt 113.6 kg
[~2018-12-23 05:38] MED LIST changes: -E-Z-GAS II EFFERVESCENT PACKET (SODIUM BICARB./CITRIC ACID/SIMETHICONE) As Ordered ONE; -E-Z-HD 98% w/w 340GM SUSP BTL As Ordered ONE; -E-Z-PAQUE 96% w/w SUSP 176GM BTL As Ordered ONE; -IBUP80TA PO
[2018-12-23] MEDS ORDERED: CYCL10TA PO (05:49)
[2018-12-23] MEDS ORDERED: IBUP80TA PO (05:49)
--- NOTE | 2018-12-23 06:54 | REP ---
Clinical: Cough and vomiting . Comparison: 11/15/2018 . Technique: PA and lateral. Findings: The mediastinum and cardiac silhouette are normal. The lung muller are clear and without acute consolidation, effusion, or pneumothorax. The skeletal structures are intact and normal. Impression: 1. No acute cardiopulmonary process. Electronically Signed by Keith Cuadra MD 12/23/2018 06:46 A
[2018-12-23 07:10] VITALS: BP 141/73
== END 2018-12-23 07:20 | disposition home or self-care (01) ==
LOC: M ED 05:38
DX: R05 Cough (principal); E06.3 Autoimmune thyroiditis; G47.33 Obstructive sleep apnea (adult) (pediatric); K21.9 Gastro-esophageal reflux disease without esophagitis; M54.9 Dorsalgia, unspecified; M79.7 Fibromyalgia; Z79.899 Other long term (current) drug therapy; Z87.42 Personal history of other diseases of the female genital tract; Z88.5 Allergy status to narcotic agent; Z88.4 Allergy status to anesthetic agent; Z88.8 Allergy status to other drugs, medicaments and biological substances; Z88.1 Allergy status to other antibiotic agents

== ENCOUNTER → 2018-12-25 | Outpatient (CLI) | payer OTHER ==
[~2018-12-25] MED LIST changes: +IBUP80TA PO
[2018-12-25 12:53] LABS: APPEARANCE, URINE CLEAR (CLEAR); BACTERIA, URINE AUTO NEGATIVE (NEGATIVE); BILIRUBIN, URINE AUTO NEGATIVE (NEGATIVE); BLOOD, URINE BLOOD NEGATIVE (NEGATIVE); COLOR, URINE STRAW (YELLOW); GLUCOSE, URINE (UA) AUTO NEGATIVE (NEGATIVE); KETONE, URINE AUTO NEGATIVE (NEGATIVE); LEUKOCYTE ESTERASE, URINE AUTO NEGATIVE (NEGATIVE); NITRITE, URINE AUTO NEGATIVE (NEGATIVE); PROTEIN, URINE AUTO NEGATIVE (NEGATIVE); RBC, URINE AUTO 1 /HPF (0-3); SPECIFIC GRAVITY URINE AUTO 1.005 (1.002-1.035); SQUAMOUS EPITHELIAL CELL UR AU 0 /HPF (0-6); UROBILINOGEN, URINE AUTO 0.2 mg/dL (0.0-2.0); WBC, URINE AUTO 1 /HPF (0-3)
[2018-12-25 13:02] LABS: BASO # 0.1 10^3/uL (0.0-0.2); BASO % 0.7 % (0.0-1.0); EOS # 0.3 10^3/uL (0.0-0.50); EOS % 3.5 % (0.0-3.0); HEMATOCRIT 41.7 % (36.0-47.0); HEMOGLOBIN 13.5 g/dl (12.0-15.5); LYMPH # 2.5 10^3/uL (1.5-4.5); LYMPH % 30.6 % (24.0-44.0); MEAN CORPUSCULAR HEMOGLOBIN 28.7 pg (27.0-33.0); MEAN CORPUSCULAR HGB CONC 32.4 g/dl (32.0-36.5); MEAN CORPUSCULAR VOLUME 88.5 fl (80.0-96.0); MONO # 0.4 10^3/uL (0.0-0.8); MONO % 5.3 % (0.0-5.0); NEUTROPHILS # 4.8 10^3/uL (1.8-7.7); NEUTROPHILS % 59.4 % (36.0-66.0); PLATELET COUNT, AUTOMATED 303 10^3/uL (150-450); RED BLOOD COUNT 4.71 10^6/uL (4.00-5.40); WHITE BLOOD COUNT 8.1 10^3/uL (4.0-10.0)
[2018-12-25 13:15] LABS: ALBUMIN 3.5 GM/DL (3.2-5.2); ALT/SGPT 25 U/L (12-78); BILIRUBIN,TOTAL 0.5 MG/DL (0.2-1.0); BLOOD UREA NITROGEN 11 MG/DL (7-18); CALCIUM LEVEL 8.2 MG/DL (8.5-10.1); CARBON DIOXIDE LEVEL 28 MEQ/L (21-32); CHLORIDE LEVEL 107 MEQ/L (98-107); CREATININE FOR GFR 0.77 MG/DL (0.55-1.30); FOLLICLE STIMULATING HORMONE 46.2 mIU/mL; GLOMERULAR FILTRATION RATE > 60.0 (>51); GLUCOSE, FASTING 84 MG/DL (70-100); LUTEINIZING HORMONE 17.3 mIU/mL; POTASSIUM SERUM 4.5 MEQ/L (3.5-5.1); SODIUM LEVEL 141 MEQ/L (136-145); TOTAL PROTEIN 6.6 GM/DL (6.4-8.2)
[2018-12-25 14:04] LABS: HEMOGLOBIN A1c 5.7 %
== END ==
LOC: M WUC 10:01
PROVIDERS: ATTEND Urology Pediatric Urology
DX: R10.2 Pelvic and perineal pain (principal)

== ENCOUNTER → 2018-12-27 | Outpatient (CLI) | payer OTHER ==
[~2018-12-27] MED LIST changes: +GASTROGRAFIN SOLUTION 30ML (Q9963) As Ordered ONE; +ISOVUE-370 76% 100ML VIAL (Q9967) As Ordered ONE
--- NOTE | 2018-12-27 15:08 | REP ---
Clinical: Pelvic pain. Technique: Axial contrast enhanced images from the lung bases to the pubic symphysis using oral (per protocol) and 100 ml Isovue 370 intravenous contrast material with precontrast images of the abdomen as well as coronal and sagittal re-formations. Automated dose reduction technique and adjustments based on patient's size utilized for image acquisition. Comparison: 11/08/2017. Findings: Lung bases are clear. Visualized heart and pericardium normal. Fatty infiltration to the liver without focal hepatic lesion. Spleen, pancreas, gallbladder, bilateral adrenal glands and kidneys are normal. The enteric system is without obstruction or acute inflammatory process. 1 cm fat containing periumbilical hernia noted. Pelvis demonstrates normal bladder and evidence for prior hysterectomy. No pelvic fluid or ascites. No free air. No adenopathy. Abdominal aorta without aneurysm or dissection. Surrounding musculoskeletal structures are intact. Impression: 1. No acute abdominopelvic pathology appreciated. 2. Hepatic steatosis. 3. 1 cm fat containing periumbilical hernia. Electronically Signed by Keith Cuadra MD 12/27/2018 03:00 P
== END ==
LOC: M RAD 12:42
PROVIDERS: ATTEND Urology Pediatric Urology
DX: R10.2 Pelvic and perineal pain (principal)

== ENCOUNTER → 2019-01-17 | Outpatient (REF) | payer OTHER ==
[~2019-01-17] MED LIST changes: -GASTROGRAFIN SOLUTION 30ML (Q9963) As Ordered ONE; -ISOVUE-370 76% 100ML VIAL (Q9967) As Ordered ONE
[2019-01-17 16:09] LABS: INFLUENZA A AMPLIFICATION POSITIVE (NEGATIVE); INFLUENZA B AMPLIFICATION NEGATIVE (NEGATIVE)
== END ==
LOC: M LAB REF 15:25
PROVIDERS: ATTEND Physician Assistant
DX: J11.1 Influenza due to unidentified influenza virus with other respiratory manifestations (principal)

== ENCOUNTER → 2019-07-18 | Outpatient (REF) | payer OTHER ==
[~2019-07-18] MED LIST changes: +HYDR-3715 PO; -NAPR-50 PO; +NAPR-837 PO; -NORCOTAB PO
== END ==
LOC: M LAB REF 09:22
PROVIDERS: ATTEND Physician Assistant
DX: M54.5 Low back pain (principal)

== ENCOUNTER 2019-09-19 11:10 | Emergency (ER) | payer OTHER ==
[~2019-09-19] VITALS: Ht 162.6 cm; Wt 111.4 kg
[2019-09-19 11:52] LABS: BASO # 0.1 10^3/uL (0.0-0.2); BASO % 1.1 % (0.0-1.0); EOS # 0.2 10^3/uL (0.0-0.5); EOS % 3.5 % (0.0-3.0); HEMATOCRIT 43.7 % (36.0-47.0); HEMOGLOBIN 14.1 g/dl (12.0-15.5); LYMPH # 1.8 10^3/uL (1.5-5.0); LYMPH % 28.3 % (24.0-44.0); MEAN CORPUSCULAR HEMOGLOBIN 28.8 pg (27.0-33.0); MEAN CORPUSCULAR HGB CONC 32.3 g/dl (32.0-36.5); MEAN CORPUSCULAR VOLUME 89.2 fl (80.0-96.0); MONO # 0.3 10^3/uL (0.0-0.8); MONO % 5.2 % (0.0-5.0); NEUTROPHILS # 3.9 10^3/uL (1.5-8.5); NEUTROPHILS % 61.7 % (36.0-66.0); PLATELET COUNT, AUTOMATED 279 10^3/uL (150-450); WHITE BLOOD COUNT 6.4 10^3/uL (4.0-10.0)
[2019-09-19 12:21] LABS: ALBUMIN 3.5 GM/DL (3.2-5.2); ALT/SGPT 31 U/L (12-78); BILIRUBIN,DIRECT < 0.1 MG/DL (0.0-0.2); BILIRUBIN,TOTAL 0.4 MG/DL (0.2-1.0); BLOOD UREA NITROGEN 12 MG/DL (7-18); CALCIUM LEVEL 8.5 MG/DL (8.5-10.1); CARBON DIOXIDE LEVEL 29 MEQ/L (21-32); CHLORIDE LEVEL 109 MEQ/L (98-107); CREATININE FOR GFR 0.82 MG/DL (0.55-1.30); GLOMERULAR FILTRATION RATE > 60.0 (>51); GLUCOSE, FASTING 104 MG/DL (70-100); LIPASE 82 U/L (73-393); POTASSIUM SERUM 4.2 MEQ/L (3.5-5.1); SODIUM LEVEL 142 MEQ/L (136-145); TOTAL PROTEIN 6.8 GM/DL (6.4-8.2)
[2019-09-19] MEDS ORDERED: DEXI60CA2 PO (13:08)
[2019-09-19] MEDS ORDERED: PHEN-239 PO (13:08)
--- NOTE | 2019-09-19 14:24 | REP ---
Pelvis/bilateral hip study: Five views. History: Injury in a fall. Pain in the pubic symphysis region. Comparison study: October 17, 2015. Findings: AP view of the pelvis shows an intact bony pelvic ring. Symphysis pubis is unremarkable. No pelvic fracture is seen. No sacral fracture is observed. There is moderate osteoarthritis affecting the right hip with acetabular and femoral sclerosis and spur formation. Femoral head is smooth and rounded. There is mild superior hip joint space narrowing. There is minimal spurring on the left. Impression: Moderate osteoarthritis right hip. Otherwise negative. No fracture is seen. Electronically Signed by Pierre Watkins MD 09/19/2019 06:39 P
--- NOTE | 2019-09-19 15:08 | REP ---
Pelvic sonography: History: History of ovarian cyst. Left lower quadrant pain. Comparison CT study December 27, 2018. Findings: Transabdominal and transvaginal scanning are performed. The uterus is surgically absent. Neither ovary could be visualized. No free fluid, mass, or cyst is observed. Visualized bladder beckwith are smooth. Impression: No abnormality noted. Status post hysterectomy. Neither ovary was visualized. No mass or cyst is seen. Electronically Signed by Pierre Watkins MD 09/19/2019 06:40 P
[2019-09-19 15:13] VITALS: BP 150/90
== END 2019-09-19 15:06 | disposition home or self-care (01) ==
LOC: M ED 11:10
DX: S30.1XXA Contusion of abdominal wall, initial encounter (principal); Z91.81 History of falling; R11.0 Nausea; K21.9 Gastro-esophageal reflux disease without esophagitis; G47.30 Sleep apnea, unspecified; Z88.5 Allergy status to narcotic agent; Z88.4 Allergy status to anesthetic agent; Z88.8 Allergy status to other drugs, medicaments and biological substances; Z88.1 Allergy status to other antibiotic agents; Y92.89 Other specified places as the place of occurrence of the external cause; Y93.9 Activity, unspecified; Y99.9 Unspecified external cause status

== ENCOUNTER 2019-10-08 18:42 | Emergency (ER) | payer OTHER ==
[~2019-10-08] VITALS: Ht 162.6 cm; Wt 106.4 kg
[~2019-10-08 18:42] MED LIST changes: +DEXI60CA2 PO; +PHEN-239 PO
[2019-10-08] MEDS ORDERED: ADACEL/BOOSTRIX VACCINE (DIPHTH/PERTUSS/ACELL/TETANUS)0.5ML SYR (90715) IM ONE (19:30)
[2019-10-08] MEDS ORDERED: KETOROLAC 30 MG/ML VIAL (J1885) IM ONE (19:30)
[2019-10-08] MEDS ORDERED: KETO10TAB PO (19:49)
[2019-10-08] MEDS ORDERED: TRAM50TA2 PO (19:49)
[2019-10-08 19:58] VITALS: BP 186/85
== END 2019-10-08 19:59 | disposition home or self-care (01) ==
LOC: M ED 18:42
DX: S61.012A Laceration without foreign body of left thumb without damage to nail, initial encounter (principal); W26.0XXA Contact with knife, initial encounter; Y92.010 Kitchen of single-family (private) house as the place of occurrence of the external cause; Y93.G1 Activity, food preparation and clean up; K21.9 Gastro-esophageal reflux disease without esophagitis; E05.90 Thyrotoxicosis, unspecified without thyrotoxic crisis or storm; Z79.899 Other long term (current) drug therapy; Z88.1 Allergy status to other antibiotic agents; Z88.5 Allergy status to narcotic agent; Z88.8 Allergy status to other drugs, medicaments and biological substances
CPT/HCPCS: 12041; 90471; 90715; 96372; 99283; J1885

== ENCOUNTER → 2019-10-17 | Outpatient (REF) | payer OTHER | LOC: M LAB REF 16:09 | PROVIDERS: ATTEND Nurse Practitioner | DX: D48.5 Neoplasm of uncertain behavior of skin (principal); L08.9 Local infection of the skin and subcutaneous tissue, unspecified; R50.9 Fever, unspecified ==

== ENCOUNTER → 2019-11-04 | Outpatient (REF) | payer OTHER ==
[2019-11-04 13:47] LABS: APPEARANCE, URINE CLEAR (CLEAR); BACTERIA, URINE AUTO NEGATIVE (NEGATIVE); BILIRUBIN, URINE AUTO NEGATIVE (NEGATIVE); BLOOD, URINE BLOOD NEGATIVE (NEGATIVE); COLOR, URINE STRAW (YELLOW); GLUCOSE, URINE (UA) AUTO NEGATIVE (NEGATIVE); KETONE, URINE AUTO NEGATIVE (NEGATIVE); LEUKOCYTE ESTERASE, URINE AUTO NEGATIVE (NEGATIVE); NITRITE, URINE AUTO NEGATIVE (NEGATIVE); PROTEIN, URINE AUTO NEGATIVE (NEGATIVE); RBC, URINE AUTO 0 /HPF (0-3); SPECIFIC GRAVITY URINE AUTO 1.002 (1.002-1.035); SQUAMOUS EPITHELIAL CELL UR AU 0 /HPF (0-6); UROBILINOGEN, URINE AUTO 0.2 mg/dL (0.0-2.0); WBC, URINE AUTO 1 /HPF (0-3)
== END ==
LOC: M LAB REF 13:32
PROVIDERS: ATTEND Nurse Practitioner Women's Health
DX: N39.0 Urinary tract infection, site not specified (principal)

== ENCOUNTER 2020-05-29 13:09 | Emergency (ER) | payer OTHER ==
[~2020-05-29 13:09] MED LIST changes: +CYCL-707 PO; -CYCL10TA PO
[2020-05-29] MEDS ORDERED: methylPREDNISolone 125MG 2ML VIAL As Ordered ONE (15:15)
== END 2020-05-29 15:50 | disposition home or self-care (01) ==
LOC: M ED 13:09
DX: R22.31 Localized swelling, mass and lump, right upper limb (principal); W57.XXXA Bitten or stung by nonvenomous insect and other nonvenomous arthropods, initial encounter; Y92.89 Other specified places as the place of occurrence of the external cause; Z79.899 Other long term (current) drug therapy; Z88.8 Allergy status to other drugs, medicaments and biological substances
CPT/HCPCS: 96372; 99282; J2930

== ENCOUNTER 2020-06-04 17:26 | Emergency (ER) | payer OTHER ==
[2020-06-04] MEDS ORDERED: CYCLOBENZAPRINE 10MG TABLET As Ordered ONE (20:55)
[2020-06-04] MEDS ORDERED: KETOROLAC 60MG 2ML VIAL As Ordered ONE (20:56)
== END 2020-06-04 21:27 | disposition home or self-care (01) ==
LOC: M ED 17:26
DX: S16.1XXA Strain of muscle, fascia and tendon at neck level, initial encounter (principal); M47.812 Spondylosis without myelopathy or radiculopathy, cervical region; K21.9 Gastro-esophageal reflux disease without esophagitis; Z79.899 Other long term (current) drug therapy; Z88.8 Allergy status to other drugs, medicaments and biological substances; Y99.0 Civilian activity done for income or pay; Y92.9 Unspecified place or not applicable; Y93.9 Activity, unspecified
CPT/HCPCS: 72125; 96372; 99282; J1885

== ENCOUNTER → 2020-11-20 | Outpatient (REF) | payer OTHER | LOC: M LAB REF 15:31 | PROVIDERS: ATTEND Nurse Practitioner Family | DX: R30.0 Dysuria (principal) ==

== ENCOUNTER → 2020-12-01 | Outpatient (CLI) | payer OTHER ==
--- NOTE | 2020-12-01 08:25 | REP ---
INDICATION: UMBILICAL HERNIA WITHOUT OBSTRUCTION OR GANGRENE COMPARISON: None. TECHNIQUE: Real time foster scale ultrasound examination using high-frequency transducer.. FINDINGS: Directed ultrasound examination in the periumbilical region demonstrates a very small fat containing periumbilical hernia measuring 11 mm maximal diameter. IMPRESSION: Small periumbilical fat containing hernia. <Electronically signed by Keith Cuadra > 12/01/20 [id number]
== END ==
LOC: M RAD 07:30
PROVIDERS: ATTEND Nurse Practitioner Family
DX: R10.11 Right upper quadrant pain (principal)

== ENCOUNTER → 2021-03-15 | Outpatient (CLI) | payer OTHER ==
--- NOTE | 2021-03-15 16:14 | REPMRS ---
Patient History The patient states she had a clinical breast exam in 2020. No known family history of cancer. No breast complaints today Patient signed the MRS sheet No covid vaccine Priors done @ [facility] possible on both MLO's due to fibromyalgia pain in shoulders Patient Identification Verified Patient states she has gained 30lbs in the last year due to covid Digital Woman Screen Mammo: March 15, 2021 - Exam #: [id number] Bilateral CC and MLO view(s) were taken. Technologist: Jeni Castaneda, Technologist FINDINGS: The breast tissue is almost entirely fat. Screening. Digital screening (2D) mammography was performed bilaterally in the CC and MLO projections. Additionally, breast tomosynthesis (3D mammography) was performed bilaterally in the CC and MLO projections. Todays exam was compared to the prior exams. By history, the patient has no complaints of a palpable breast abnormality or other significant breast complaints. The breasts are unchanged in size and shape. There are no chiquita-soft tissue densities or spiculated masses. There is no internal architectural distortion. There are no suspicious chiquita-calcific clusters. Skin thickening or nipple retraction is not present. IMPRESSION: BI-RADS Category 2- Benign Findings. There is no evidence of malignant alteration of the breasts. Followup examination recommended in one year. This mammogram was read with the assistance of [employer],an FDA approved computer aided detection system for mammography. The Volpara volumetric breast density category is A, the breasts are almost entirely fatty. Negative x-ray reports should not delay surgical consultation if a dominant or clinically suspicious mass is present. The lifetime Tyrer-Cuzick score is 6.5 % Not all breast cancers can be identified by mammography. Therefore, we recommend that you continue to perform regular breast self-examination and physical examination and then promptly contact your physician of any concerns or changes. Adenosis and dense breasts may obscure an underlying neoplasm. Assessment: BI-RADS/ACR category 2 mammogram. Benign Findings. Recommendation Routine screening mammogram of both breasts in 1 year. Electronically Signed By: Anuj Cowan DO 03/15/21 [id number]
== END ==
LOC: M WHC 14:36
PROVIDERS: ATTEND Obstetrics & Gynecology
DX: Z12.31 Encounter for screening mammogram for malignant neoplasm of breast (principal)

== ENCOUNTER 2021-03-30 13:10 | Emergency (ER) | payer OTHER ==
[~2021-03-30] VITALS: Ht 165.1 cm; Wt 117.8 kg
--- NOTE | 2021-03-30 14:17 | REP ---
INDICATION: fall, injury, pain COMPARISON: None. TECHNIQUE: AP, lateral, bilateral oblique views of the right elbow. FINDINGS: No obvious acute fracture or dislocation is appreciated. Joint spaces and surrounding soft tissues appear normal. Lateral view demonstrates normal positioning to the anterior and posterior fat pads without evidence for effusion/hemarthrosis. No subcutaneous emphysema or foreign body identified. IMPRESSION: No obvious acute fracture or dislocation. <Electronically signed by Keith Cuadra > 03/30/21 [id number]
--- NOTE | 2021-03-30 14:18 | REP ---
INDICATION: fall, injury, pain COMPARISON: None. TECHNIQUE: Internal rotation, external rotation, and Y view. FINDINGS: Cortical irregularity and spurring at the acromioclavicular joint. Subacromial space is normal. Glenohumeral joint is essentially age-appropriate. No obvious acute fracture or dislocation.. IMPRESSION: No acute fracture or dislocation. <Electronically signed by Keith Cuadra > 03/30/21 0899
[2021-03-30] MEDS ORDERED: ULTR50TA8 PO (14:35)
[2021-03-30 14:39] VITALS: BP 168/84
== END 2021-03-30 14:48 | disposition home or self-care (01) ==
LOC: M ED 13:10
DX: S43.401A Unspecified sprain of right shoulder joint, initial encounter (principal); W01.0XXA Fall on same level from slipping, tripping and stumbling without subsequent striking against object, initial encounter; Y92.009 Unspecified place in unspecified non-institutional (private) residence as the place of occurrence of the external cause; Y93.89 Activity, other specified; Y99.8 Other external cause status; K21.9 Gastro-esophageal reflux disease without esophagitis; Z79.899 Other long term (current) drug therapy

== ENCOUNTER → 2021-05-19 | Outpatient (CLI) | payer OTHER ==
[~2021-05-19] MED LIST changes: +ULTR50TA8 PO
[2021-05-19 17:59] LABS: HEMOGLOBIN A1c 5.4 %
[2021-05-19 18:21] LABS: ALBUMIN 3.8 GM/DL (3.2-5.2); ALT/SGPT 32 U/L (12-78); BILIRUBIN,TOTAL 0.3 MG/DL (0.2-1.0); BLOOD UREA NITROGEN 10 MG/DL (7-18); CALCIUM LEVEL 8.9 MG/DL (8.5-10.1); CARBON DIOXIDE LEVEL 27 MEQ/L (21-32); CHLORIDE LEVEL 109 MEQ/L (98-107); CHOLESTEROL LEVEL 234 MG/DL (<200); CHOLESTEROL RISK RATIO 3.966 (<5); CREATININE FOR GFR 0.73 MG/DL (0.55-1.30); FREE T4 1.02 NG/DL (0.76-1.46); GLOMERULAR FILTRATION RATE > 60.0 (>51); GLUCOSE, FASTING 90 MG/DL (70-100); HDL CHOLESTEROL 59 MG/DL (>40); LDL CHOLESTEROL 150 MG/DL (<100); NON-HDL-C 175 MG/DL; POTASSIUM SERUM 4.6 MEQ/L (3.5-5.1); SODIUM LEVEL 143 MEQ/L (136-145); TOTAL PROTEIN 7.1 GM/DL (6.4-8.2); TRIGLYCERIDES LEVEL 127 MG/DL (<150)
== END ==
LOC: M LAB 16:52
PROVIDERS: ATTEND Family Medicine
DX: E78.2 Mixed hyperlipidemia (principal); E66.01 Morbid (severe) obesity due to excess calories

== ENCOUNTER 2021-07-12 12:45 | Emergency (ER) | payer OTHER ==
[~2021-07-12] VITALS: Ht 165.1 cm; Wt 117.8 kg
[2021-07-12 12:46] VITALS: BP 185/90
[2021-07-12] MEDS ORDERED: TIZA4TAB4 (13:18)
[2021-07-12] MEDS ORDERED: GABA-282 (13:18)
[2021-07-12] MEDS ORDERED: PRAV20TA2 (13:18)
[2021-07-12] MEDS ORDERED: CYCL-707 PO (13:20)
[2021-07-12] MEDS ORDERED: KETOROLAC 60MG 2ML VIAL IM ONE (17:15)
[2021-07-12] MEDS ORDERED: diazePAM 10MG/2ML SYRINGE (J3360 PER 5MG) IM ONE (17:15)
[2021-07-12] MEDS ORDERED: NAPR-837 PO (17:58)
== END 2021-07-12 18:24 | disposition home or self-care (01) ==
LOC: M ED 12:45
DX: M54.2 Cervicalgia (principal); M25.511 Pain in right shoulder; Z88.8 Allergy status to other drugs, medicaments and biological substances; Z79.899 Other long term (current) drug therapy
CPT/HCPCS: 96372; 99282; J1885; J3360

== ENCOUNTER → 2021-07-28 | Outpatient (REF) | payer OTHER ==
[~2021-07-28] MED LIST changes: +GABA-282; +PRAV20TA2; +TIZA4TAB4
[2021-07-28 16:45] LABS: BASO % 0.5 % (0.0-1.0); EOS # 0.2 10^3/uL (0.0-0.5); HEMATOCRIT 46.1 % (36.0-47.0); HEMOGLOBIN 14.6 g/dl (12.0-15.5); LYMPH # 2.1 10^3/uL (1.5-5.0); LYMPH % 28.6 % (24.0-44.0); MEAN CORPUSCULAR HEMOGLOBIN 28.8 pg (27.0-33.0); MEAN CORPUSCULAR HGB CONC 31.7 g/dl (32.0-36.5); MEAN CORPUSCULAR VOLUME 90.9 fl (80.0-96.0); MONO # 0.5 10^3/uL (0.0-0.8); MONO % 6.2 % (2.0-8.0); NEUTROPHILS # 4.7 10^3/uL (1.5-8.5); NEUTROPHILS % 62.4 % (36.0-66.0); PLATELET COUNT, AUTOMATED 325 10^3/uL (150-450); RED BLOOD COUNT 5.07 10^6/uL (4.00-5.40); WHITE BLOOD COUNT 7.5 10^3/uL (4.0-10.0)
[2021-07-28 17:20] LABS: MAGNESIUM LEVEL 1.9 MG/DL (1.8-2.4); PERCENT SATURATION 24.4 % (13.2-45.0)
[2021-07-28 17:24] LABS: FOLATE 10.5 NG/ML; TOTAL 25(OH) VITAMIN D 40.9 NG/ML (30.0-100.0)
== END ==
LOC: M WUC 16:12
PROVIDERS: ATTEND Nurse Practitioner Family
DX: R53.83 Other fatigue (principal)

== ENCOUNTER → 2021-12-06 | Outpatient (CLI) | payer OTHER ==
[~2021-12-06] MED LIST changes: +TIZA10TA; -TIZA4TAB4
== END ==
LOC: M RAD 10:55
PROVIDERS: ATTEND Otolaryngology
DX: K11.20 Sialoadenitis, unspecified (principal)

== ENCOUNTER 2022-03-14 11:25 | Emergency (ER) | payer OTHER ==
[~2022-03-14] VITALS: Ht 165.1 cm; Wt 111.8 kg
[2022-03-14 11:46] VITALS: O2SAT 96
[2022-03-14] MEDS ORDERED: BENZONATATE 100MG CAPSULE PO ONE (12:00)
[2022-03-14] MEDS ORDERED: LORATADINE 10 MG TAB PO ONE (13:20)
[2022-03-14] MEDS ORDERED: NS 1,000 ML IV ONE (13:20)
[2022-03-14] MEDS ORDERED: methylPREDNISolone 125MG 2ML VIAL IV ONE (13:20)
[2022-03-14] MEDS ORDERED: KETOROLAC 30 MG/ML 1ML VIAL IV ONE (13:20)
[2022-03-14 13:51] LABS: VENOUS BASE EXCESS -2.2 (-2.0-2.0); VENOUS HCO3 21.7 MEQ/L (23.0-27.0); VENOUS O2 SATURATION 96.8 % (60.0-80.0); VENOUS PARTIAL PRESSURE CO2 34.8 mmHg (38.0-50.0); VENOUS PARTIAL PRESSURE O2 85.8 mmHg (30.0-50.0); VENOUS PH 7.413 UNITS (7.330-7.430); VENOUS STANDARD HCO3 22.6 MEQ/L; VENOUS TOTAL CO2 22.8 MEQ/L (24.0-28.0)
[2022-03-14 13:55] LABS: BASO # 0.1 10^3/uL (0.0-0.2); BASO % 0.8 % (0.0-1.0); EOS # 0.4 10^3/uL (0.0-0.5); EOS % 4.8 % (0.0-3.0); HEMATOCRIT 40.8 % (36.0-47.0); HEMOGLOBIN 13.5 g/dl (12.0-15.5); LYMPH # 2.4 10^3/uL (1.5-5.0); LYMPH % 32.3 % (24.0-44.0); MEAN CORPUSCULAR HGB CONC 33.1 g/dl (32.0-36.5); MEAN CORPUSCULAR VOLUME 87.6 fl (80.0-96.0); MONO # 0.5 10^3/uL (0.0-0.8); MONO % 6.3 % (2.0-8.0); NEUTROPHILS # 4.1 10^3/uL (1.5-8.5); NEUTROPHILS % 55.5 % (36.0-66.0); PLATELET COUNT, AUTOMATED 289 10^3/uL (150-450); RED BLOOD COUNT 4.66 10^6/uL (4.00-5.40); WHITE BLOOD COUNT 7.3 10^3/uL (4.0-10.0)
[2022-03-14 14:19] LABS: BLOOD UREA NITROGEN 8 MG/DL (7-18); CALCIUM LEVEL 9.3 MG/DL (8.5-10.1); CARBON DIOXIDE LEVEL 22 MEQ/L (21-32); CHLORIDE LEVEL 113 MEQ/L (98-107); CREATININE FOR GFR 0.65 MG/DL (0.55-1.30); GLOMERULAR FILTRATION RATE > 60.0 (>51); GLUCOSE, FASTING 94 MG/DL (70-100); POTASSIUM SERUM 4.5 MEQ/L (3.5-5.1); SODIUM LEVEL 141 MEQ/L (136-145)
[2022-03-14] MEDS ORDERED: ISOVUE-370 76% 100ML VIAL As Ordered ONE (15:09)
[2022-03-14] MEDS ORDERED: ADVA115A INH (16:19)
[2022-03-14] MEDS ORDERED: BENZ200C70 PO (16:19)
[2022-03-14] MEDS ORDERED: PRED20TA PO (16:19)
[2022-03-14 16:35] VITALS: BP 162/62
== END 2022-03-14 16:39 | disposition home or self-care (01) ==
LOC: M ED 11:25
DX: R05.9 Cough, unspecified (principal); J70.5 Respiratory conditions due to smoke inhalation; K21.9 Gastro-esophageal reflux disease without esophagitis; Z86.79 Personal history of other diseases of the circulatory system; Z79.51 Long term (current) use of inhaled steroids; Z79.899 Other long term (current) drug therapy
CPT/HCPCS: 71046; 71275; 80048; 82803; 85025; 87428; 96361; 96374; 99284; J1885; J2930; Q9967

== ENCOUNTER 2022-03-21 08:13 | Emergency (ER) | payer OTHER ==
[~2022-03-21] VITALS: Ht 165.1 cm; Wt 113.6 kg
[~2022-03-21 08:13] MED LIST changes: +ADVA115A INH; +BENZ200C70 PO
[2022-03-21] MEDS ORDERED: MORPHINE 4 MG/ML 1ML VIAL/SYRINGE IV ONE (11:20)
[2022-03-21] MEDS ORDERED: NS 1,000 ML IV ONE (11:20)
[2022-03-21] MEDS ORDERED: ONDANSETRON 4MG/2ML VIAL IV ONE (11:20)
[2022-03-21 12:23] LABS: BASO # 0.1 10^3/uL (0.0-0.2); BASO % 0.8 % (0.0-1.0); EOS # 0.2 10^3/uL (0.0-0.5); EOS % 1.9 % (0.0-3.0); HEMATOCRIT 40.5 % (36.0-47.0); HEMOGLOBIN 12.9 g/dl (12.0-15.5); LYMPH # 4.2 10^3/uL (1.5-5.0); LYMPH % 35.8 % (24.0-44.0); MEAN CORPUSCULAR HEMOGLOBIN 29.2 pg (27.0-33.0); MEAN CORPUSCULAR HGB CONC 31.9 g/dl (32.0-36.5); MEAN CORPUSCULAR VOLUME 91.6 fl (80.0-96.0); MONO # 0.7 10^3/uL (0.0-0.8); MONO % 5.7 % (2.0-8.0); NEUTROPHILS # 6.5 10^3/uL (1.5-8.5); NEUTROPHILS % 55.1 % (36.0-66.0); PLATELET COUNT, AUTOMATED 310 10^3/uL (150-450); RED BLOOD COUNT 4.42 10^6/uL (4.00-5.40); WHITE BLOOD COUNT 11.8 10^3/uL (4.0-10.0)
[2022-03-21 12:46] LABS: ALBUMIN 3.5 GM/DL (3.2-5.2); BILIRUBIN,DIRECT 0.1 MG/DL (0.0-0.2); BILIRUBIN,TOTAL 0.4 MG/DL (0.2-1.0); TOTAL PROTEIN 6.6 GM/DL (6.4-8.2)
[2022-03-21] MEDS ORDERED: diazePAM 10MG/2ML SYRINGE (J3360 PER 5MG) IV ONE ×2 (13:15→14:05)
[2022-03-21] MEDS ORDERED: KETOROLAC 30 MG/ML 1ML VIAL IV ONE (14:05)
[2022-03-21] MEDS ORDERED: NAPR-837 PO (15:26)
[2022-03-21] MEDS ORDERED: METH-1165 PO (15:26)
[2022-03-21 15:42] VITALS: BP 150/70
== END 2022-03-21 15:55 | disposition home or self-care (01) ==
LOC: M ED 08:13
DX: M54.50 Low back pain, unspecified (principal); K21.9 Gastro-esophageal reflux disease without esophagitis; Z86.79 Personal history of other diseases of the circulatory system; Z88.5 Allergy status to narcotic agent; Z88.4 Allergy status to anesthetic agent
CPT/HCPCS: 74176; 80047; 80076; 81001; 83690; 85025; 96361; 96374; 96375; 99284; J1885; J2270; J2405; J3360

== ENCOUNTER → 2022-05-10 | Outpatient (CLI) | payer OTHER ==
[~2022-05-10] MED LIST changes: +METH-1165 PO; +PROHANCE 279.3MG/ML 15ML VIAL ONE; +PROHANCE 279.3MG/ML 5ML VIAL ONE
== END ==
LOC: M PLAIMG 13:24
PROVIDERS: ATTEND Orthopaedic Surgery
DX: M43.16 Spondylolisthesis, lumbar region (principal); M51.36 Other intervertebral disc degeneration, lumbar region; G96.191 Perineural cyst
CPT/HCPCS: 72158; A9576

== ENCOUNTER → 2022-06-09 | Outpatient (CLI) | payer OTHER ==
[~2022-06-09] MED LIST changes: -PROHANCE 279.3MG/ML 15ML VIAL ONE; -PROHANCE 279.3MG/ML 5ML VIAL ONE
[2022-06-09 13:03] LABS: HEMATOCRIT 43.5 % (36.0-47.0); HEMOGLOBIN 13.8 g/dl (12.0-15.5); MEAN CORPUSCULAR HEMOGLOBIN 29.4 pg (27.0-33.0); MEAN CORPUSCULAR HGB CONC 31.7 g/dl (32.0-36.5); MEAN CORPUSCULAR VOLUME 92.6 fl (80.0-96.0); PLATELET COUNT, AUTOMATED 297 10^3/uL (150-450); WHITE BLOOD COUNT 6.9 10^3/uL (4.0-10.0)
[2022-06-09 14:19] LABS: ALBUMIN 3.5 GM/DL (3.2-5.2); ALT/SGPT 25 U/L (12-78); BILIRUBIN,TOTAL 0.4 MG/DL (0.2-1.0); BLOOD UREA NITROGEN 9 MG/DL (7-18); CALCIUM LEVEL 8.4 MG/DL (8.5-10.1); CARBON DIOXIDE LEVEL 29 MEQ/L (21-32); CHLORIDE LEVEL 109 MEQ/L (98-107); CHOLESTEROL LEVEL 239 MG/DL (<200); CHOLESTEROL RISK RATIO 3.918 (<5); CREATININE FOR GFR 0.78 MG/DL (0.55-1.30); FREE T4 1.04 NG/DL (0.76-1.46); GLOMERULAR FILTRATION RATE > 60.0 (>51); GLUCOSE, FASTING 99 MG/DL (70-100); HDL CHOLESTEROL 61 MG/DL (>40); LDL CHOLESTEROL 161 MG/DL (<100); MAGNESIUM LEVEL 2.2 MG/DL (1.8-2.4); NON-HDL-C 178 MG/DL; NT-PRO BNP 177 PG/ML (<125); POTASSIUM SERUM 3.9 MEQ/L (3.5-5.1); SODIUM LEVEL 143 MEQ/L (136-145); TOTAL PROTEIN 6.5 GM/DL (6.4-8.2); TRIGLYCERIDES LEVEL 84 MG/DL (<150)
[2022-06-09 15:22] LABS: HEMOGLOBIN A1c 5.2 %
== END ==
LOC: M WUC 09:03
PROVIDERS: ATTEND Physician Assistant
DX: I50.32 Chronic diastolic (congestive) heart failure (principal); E78.00 Pure hypercholesterolemia, unspecified; R00.2 Palpitations; Z13.1 Encounter for screening for diabetes mellitus

== ENCOUNTER → 2022-07-25 | Outpatient (CLI) | payer OTHER | LOC: M WHC 15:00 | PROVIDERS: ATTEND Obstetrics & Gynecology | DX: Z12.31 Encounter for screening mammogram for malignant neoplasm of breast (principal) ==

== ENCOUNTER 2022-08-13 14:15 | Emergency (ER) | payer OTHER ==
[~2022-08-13] VITALS: Ht 162.6 cm; Wt 118.2 kg
[2022-08-13 14:53] LABS: BASO # 0.1 10^3/uL (0.0-0.2); BASO % 0.9 % (0.0-1.0); EOS # 0.1 10^3/uL (0.0-0.5); EOS % 1.8 % (0.0-3.0); HEMATOCRIT 42.1 % (36.0-47.0); HEMOGLOBIN 13.9 g/dl (12.0-15.5); LYMPH # 2.7 10^3/uL (1.5-5.0); LYMPH % 34.5 % (24.0-44.0); MEAN CORPUSCULAR HEMOGLOBIN 29.6 pg (27.0-33.0); MEAN CORPUSCULAR VOLUME 89.6 fl (80.0-96.0); MONO # 0.4 10^3/uL (0.0-0.8); MONO % 5.6 % (2.0-8.0); NEUTROPHILS # 4.5 10^3/uL (1.5-8.5); NEUTROPHILS % 56.9 % (36.0-66.0); PLATELET COUNT, AUTOMATED 311 10^3/uL (150-450); WHITE BLOOD COUNT 7.9 10^3/uL (4.0-10.0)
[2022-08-13 15:29] LABS: BLOOD UREA NITROGEN 12 MG/DL (7-18); CALCIUM LEVEL 8.7 MG/DL (8.5-10.1); CARBON DIOXIDE LEVEL 26 MEQ/L (21-32); CHLORIDE LEVEL 107 MEQ/L (98-107); CREATININE FOR GFR 0.84 MG/DL (0.55-1.30); GLOMERULAR FILTRATION RATE > 60.0 (>51); GLUCOSE, FASTING 116 MG/DL (70-100); POTASSIUM SERUM 3.7 MEQ/L (3.5-5.1); SODIUM LEVEL 140 MEQ/L (136-145)
[2022-08-13 15:33] LABS: CK-MB VALUE MASS 1.4 NG/ML (<3.6); MB/CK RELATIVE INDEX 1.67 (< OR =4)
[2022-08-13] MEDS ORDERED: MORPHINE 2 MG/ML 1ML VIAL IV PRN (15:40)
[2022-08-13] MEDS ORDERED: ASPIRIN 81 MG CHEW TABLET PO ONE (15:40)
[2022-08-13 16:01] LABS: NT-PRO BNP 260 PG/ML (<125)
[2022-08-13 16:31] LABS: D-DIMER QUANT 339.94 ng/ml (<500)
[2022-08-13 16:50] LABS: MB/CK RELATIVE INDEX 2.53 (< OR =4)
[2022-08-13 17:22] LABS: INR 0.98; PROTHROMBIN TIME 13.4 SECONDS (12.7-14.5)
[2022-08-13] MEDS ORDERED: MORPHINE 4 MG/ML 1ML VIAL/SYRINGE IV ONE (17:25)
[2022-08-13] MEDS ORDERED: HEPARIN DRIP 25,000 UNITS in IV 1 EA IV SCH (17:45)
[2022-08-13] MEDS ORDERED: HEPARIN SOD (PORCINE) 5000UNITS/ML 1ML VIAL/SYRINGE IV ONE (17:45)
[2022-08-13] MEDS: NITROGLYCERIN 0.4 MG SUBL TABLET SL PRN ×2 (18:09→18:18)
[2022-08-13 18:18] VITALS: BP 140/63
[2022-08-13 18:20] LABS: RSV AMPLIFICATION NEGATIVE (NEGATIVE)
[2022-08-13 19:06] LABS: CK-MB VALUE MASS 2.5 NG/ML (<3.6); MB/CK RELATIVE INDEX 2.75 (< OR =4)
[2022-08-13 20:11] VITALS: BP 132/67
== END 2022-08-13 20:12 | disposition short-term general hospital (02) ==
LOC: M ED 14:15
DX: I21.4 Non-ST elevation (NSTEMI) myocardial infarction (principal); R94.31 Abnormal electrocardiogram [ECG] [EKG]; K21.9 Gastro-esophageal reflux disease without esophagitis; Z86.79 Personal history of other diseases of the circulatory system; Z88.5 Allergy status to narcotic agent; Z88.1 Allergy status to other antibiotic agents; Z88.4 Allergy status to anesthetic agent; Z79.1 Long term (current) use of non-steroidal anti-inflammatories (NSAID); Z79.899 Other long term (current) drug therapy
CPT/HCPCS: 71045; 80048; 82550; 82553; 83880; 84484; 85025; 85379; 85610; 85730; 87631; 93005; 93041; 94760; 96365; 96366; 96375; 96376; 99285; J1644; J2270

== ENCOUNTER → 2022-08-29 | Outpatient (CLI) | payer OTHER ==
[2022-08-29 12:43] LABS: HEMOGLOBIN 13.8 g/dl (12.0-15.5); MEAN CORPUSCULAR HEMOGLOBIN 29.3 pg (27.0-33.0); MEAN CORPUSCULAR HGB CONC 32.1 g/dl (32.0-36.5); MEAN CORPUSCULAR VOLUME 91.3 fl (80.0-96.0); PLATELET COUNT, AUTOMATED 304 10^3/uL (150-450); RED BLOOD COUNT 4.71 10^6/uL (4.00-5.40); WHITE BLOOD COUNT 5.8 10^3/uL (4.0-10.0)
[2022-08-29 13:42] LABS: ALBUMIN 3.7 GM/DL (3.2-5.2); ALT/SGPT 22 U/L (12-78); BILIRUBIN,TOTAL 0.5 MG/DL (0.2-1.0); BLOOD UREA NITROGEN 10 MG/DL (7-18); CALCIUM LEVEL 8.7 MG/DL (8.5-10.1); CARBON DIOXIDE LEVEL 28 MEQ/L (21-32); CHLORIDE LEVEL 109 MEQ/L (98-107); CHOLESTEROL LEVEL 143 MG/DL (<200); GLOMERULAR FILTRATION RATE > 60.0 (>51); GLUCOSE, FASTING 101 MG/DL (70-100); HDL CHOLESTEROL 50 MG/DL (>40); LDL CHOLESTEROL 77 MG/DL (<100); MAGNESIUM LEVEL 2.3 MG/DL (1.8-2.4); NON-HDL-C 93 MG/DL; POTASSIUM SERUM 3.9 MEQ/L (3.5-5.1); SODIUM LEVEL 141 MEQ/L (136-145); TOTAL PROTEIN 6.5 GM/DL (6.4-8.2); TRIGLYCERIDES LEVEL 78 MG/DL (<150)
== END ==
LOC: M WUC 09:34
PROVIDERS: ATTEND Physician Assistant
DX: I25.42 Coronary artery dissection (principal)

== ENCOUNTER → 2022-08-31 | Outpatient (CLI) | payer OTHER ==
[2022-08-31 17:32] LABS: BASO # 0.1 10^3/uL (0.0-0.2); EOS # 0.2 10^3/uL (0.0-0.5); EOS % 3.2 % (0.0-3.0); HEMATOCRIT 43.5 % (36.0-47.0); HEMOGLOBIN 13.9 g/dl (12.0-15.5); LYMPH # 2.3 10^3/uL (1.5-5.0); LYMPH % 32.6 % (24.0-44.0); MEAN CORPUSCULAR HEMOGLOBIN 29.4 pg (27.0-33.0); MEAN CORPUSCULAR VOLUME 92.2 fl (80.0-96.0); MONO # 0.5 10^3/uL (0.0-0.8); MONO % 6.7 % (2.0-8.0); NEUTROPHILS % 55.9 % (36.0-66.0); PLATELET COUNT, AUTOMATED 315 10^3/uL (150-450); RED BLOOD COUNT 4.72 10^6/uL (4.00-5.40); WHITE BLOOD COUNT 7.1 10^3/uL (4.0-10.0)
[2022-08-31 18:17] LABS: BLOOD UREA NITROGEN 7 MG/DL (7-18); CALCIUM LEVEL 8.6 MG/DL (8.5-10.1); CARBON DIOXIDE LEVEL 29 MEQ/L (21-32); CHLORIDE LEVEL 109 MEQ/L (98-107); CREATININE FOR GFR 0.72 MG/DL (0.55-1.30); FERRITIN 133 NG/ML (8-252); FREE T4 1.04 NG/DL (0.76-1.46); GLOMERULAR FILTRATION RATE > 60.0 (>51); GLUCOSE, FASTING 93 MG/DL (70-100); IRON (FE) 53 UG/DL (50-170); PERCENT SATURATION 16.2 % (13.2-45.0); SODIUM LEVEL 141 MEQ/L (136-145); TOTAL IRON BINDING CAPACITY 328 UG/DL (250-450)
[2022-08-31 18:57] LABS: FOLATE 11.4 NG/ML (>5.4); TOTAL 25(OH) VITAMIN D 37.1 NG/ML (30.0-100.0); VITAMIN B12 LEVEL 614 PG/ML (247-911)
== END ==
LOC: M WUC 15:02
PROVIDERS: ATTEND Nurse Practitioner Family
DX: R53.83 Other fatigue (principal)

== ENCOUNTER → 2022-09-26 | Outpatient (CLI) | payer OTHER ==
[2022-09-26 14:48] LABS: FERRITIN 95.1 NG/ML (7.3-270.7); FOLATE 12.8 NG/ML (>5.4)
== END ==
LOC: M LAB 12:04
PROVIDERS: ATTEND Otolaryngology
DX: K14.6 Glossodynia (principal)

== ENCOUNTER → 2022-10-24 | Outpatient (CLI) | payer OTHER ==
[2022-10-24 17:20] LABS: BASO # 0.1 10^3/uL (0.0-0.2); BASO % 0.7 % (0.0-1.0); EOS # 0.2 10^3/uL (0.0-0.5); EOS % 2.3 % (0.0-3.0); HEMATOCRIT 46.1 % (36.0-47.0); HEMOGLOBIN 14.2 g/dl (12.0-15.5); LYMPH # 2.4 10^3/uL (1.5-5.0); LYMPH % 32.2 % (24.0-44.0); MEAN CORPUSCULAR HEMOGLOBIN 28.7 pg (27.0-33.0); MEAN CORPUSCULAR HGB CONC 30.8 g/dl (32.0-36.5); MEAN CORPUSCULAR VOLUME 93.1 fl (80.0-96.0); MONO # 0.5 10^3/uL (0.0-0.8); MONO % 6.8 % (2.0-8.0); NEUTROPHILS # 4.3 10^3/uL (1.5-8.5); NEUTROPHILS % 57.7 % (36.0-66.0); PLATELET COUNT, AUTOMATED 320 10^3/uL (150-450); RED BLOOD COUNT 4.95 10^6/uL (4.00-5.40); WHITE BLOOD COUNT 7.5 10^3/uL (4.0-10.0)
[2022-10-24 17:51] LABS: ALKALINE PHOSPHATASE 77 U/L (46-116); ALT/SGPT 21 U/L (7.0-40); AST/SGOT 18 U/L (<34); BILIRUBIN,TOTAL 0.5 MG/DL (0.3-1.2); BLOOD UREA NITROGEN 11 MG/DL (9-23); CALCIUM LEVEL 8.7 MG/DL (8.5-10.1); CARBON DIOXIDE LEVEL 28 MMOL/L (20-31); CHLORIDE LEVEL 107 MMOL/L (98-107); CREATININE FOR GFR 0.73 MG/DL (0.55-1.30); GLOMERULAR FILTRATION RATE > 60.0 (>51); GLUCOSE, FASTING 96 MG/DL (60-100); POTASSIUM SERUM 4.4 MMOL/L (3.5-5.1); SODIUM LEVEL 143 MMOL/L (136-145); TOTAL PROTEIN 6.6 G/DL (5.7-8.2)
== END ==
LOC: M WUC 14:09
PROVIDERS: ATTEND Nurse Practitioner Family
DX: I25.42 Coronary artery dissection (principal); I50.32 Chronic diastolic (congestive) heart failure

== ENCOUNTER → 2022-11-20 | Outpatient (CLI) | payer OTHER ==
[2022-11-20 18:07] LABS: HEMATOCRIT 44.8 % (36.0-47.0); HEMOGLOBIN 13.7 g/dl (12.0-15.5); MEAN CORPUSCULAR HEMOGLOBIN 28.4 pg (27.0-33.0); MEAN CORPUSCULAR HGB CONC 30.6 g/dl (32.0-36.5); MEAN CORPUSCULAR VOLUME 92.8 fl (80.0-96.0); PLATELET COUNT, AUTOMATED 319 10^3/uL (150-450); RED BLOOD COUNT 4.83 10^6/uL (4.00-5.40); WHITE BLOOD COUNT 6.2 10^3/uL (4.0-10.0)
[2022-11-20 18:35] LABS: BLOOD UREA NITROGEN 11 MG/DL (9-23); CALCIUM LEVEL 8.3 MG/DL (8.5-10.1); CARBON DIOXIDE LEVEL 28 MMOL/L (20-31); CHLORIDE LEVEL 105 MMOL/L (98-107); CREATININE FOR GFR 0.73 MG/DL (0.55-1.30); GLOMERULAR FILTRATION RATE > 60.0 (>51); GLUCOSE, FASTING 100 MG/DL (60-100); POTASSIUM SERUM 4.1 MMOL/L (3.5-5.1); SODIUM LEVEL 141 MMOL/L (136-145)
[2022-11-20 18:37] LABS: THYROID STIMULATING HORMONE 0.998 uIU/ML (0.55-4.78)
[2022-11-20 18:38] LABS: FREE T4 1.05 NG/DL (0.89-1.76)
== END ==
LOC: M WUC 11:44
PROVIDERS: ATTEND Physician Assistant
DX: R00.2 Palpitations (principal); R06.02 Shortness of breath

== ENCOUNTER → 2022-12-28 | Outpatient (CLI) | payer OTHER | LOC: M WHC 12:58 | PROVIDERS: ATTEND Nurse Practitioner Family | DX: R10.2 Pelvic and perineal pain (principal) ==

== ENCOUNTER 2022-12-31 09:41 | Emergency (ER) | payer OTHER ==
[~2022-12-31] VITALS: Ht 165.1 cm; Wt 113.6 kg
[2022-12-31] MEDS ORDERED: ASPIRIN 81MG CHEW TABLET PO ONE (10:35)
[2022-12-31] MEDS ORDERED: ISOVUE-370 76% 100ML VIAL As Ordered ONE (10:41)
[2022-12-31 10:50] LABS: BASO # 0.1 10^3/uL (0.0-0.2); BASO % 0.8 % (0.0-1.0); EOS # 0.2 10^3/uL (0.0-0.5); EOS % 2.8 % (0.0-3.0); HEMATOCRIT 39.3 % (36.0-47.0); HEMOGLOBIN 12.4 g/dl (12.0-15.5); LYMPH # 1.6 10^3/uL (1.5-5.0); LYMPH % 25.5 % (24.0-44.0); MEAN CORPUSCULAR HEMOGLOBIN 28.8 pg (27.0-33.0); MEAN CORPUSCULAR HGB CONC 31.6 g/dl (32.0-36.5); MEAN CORPUSCULAR VOLUME 91.4 fl (80.0-96.0); MONO # 0.4 10^3/uL (0.0-0.8); MONO % 6.2 % (2.0-8.0); NEUTROPHILS # 4.1 10^3/uL (1.5-8.5); NEUTROPHILS % 64.4 % (36.0-66.0); PLATELET COUNT, AUTOMATED 251 10^3/uL (150-450); WHITE BLOOD COUNT 6.4 10^3/uL (4.0-10.0)
[2022-12-31] MEDS: NITROGLYCERIN 0.4MG SUBL TABLET SL PRN ×2 (10:59→11:29)
[2022-12-31 11:00] LABS: INR 0.95; PROTHROMBIN TIME 12.9 SECONDS (12.5-14.5)
[2022-12-31 11:13] LABS: LIPASE 27 U/L (12-53)
[2022-12-31 11:16] LABS: CPK CREATINE PHOSPHOKINASE 74 U/L (34-145)
[2022-12-31 11:19] LABS: ALBUMIN 3.4 G/DL (3.2-5.2); ALKALINE PHOSPHATASE 70 U/L (46-116); ALT/SGPT 27 U/L (7.0-40); AST/SGOT 19 U/L (<34); BILIRUBIN,DIRECT 0.1 MG/DL (<0.4); BILIRUBIN,TOTAL 0.6 MG/DL (0.3-1.2); BLOOD UREA NITROGEN 8 MG/DL (9-23); CALCIUM LEVEL 8.5 MG/DL (8.3-10.6); CARBON DIOXIDE LEVEL 28 MMOL/L (20-31); CHLORIDE LEVEL 108 MMOL/L (98-107); CK-MB VALUE MASS < 1.0 NG/ML (<3.6); CREATININE FOR GFR 0.64 MG/DL (0.55-1.30); GLOMERULAR FILTRATION RATE > 60.0 (>45); GLUCOSE, FASTING 95 MG/DL (74-106); MB/CK RELATIVE INDEX 1.35 (< OR =4); POTASSIUM SERUM 4.3 MMOL/L (3.5-5.1); SODIUM LEVEL 141 MMOL/L (136-145); THYROID STIMULATING HORMONE 2.285 uIU/ML (0.55-4.78); TOTAL PROTEIN 6.1 G/DL (5.7-8.2)
[2022-12-31 11:29] VITALS: BP 124/68
[2022-12-31 12:04] LABS: MB/CK RELATIVE INDEX 1.42 (< OR =4)
[2022-12-31 13:45] VITALS: BP 119/58
[2022-12-31 13:56] LABS: CK-MB VALUE MASS < 1.0 NG/ML (<3.6)
[2022-12-31 13:58] LABS: CPK CREATINE PHOSPHOKINASE 69 U/L (34-145); MB/CK RELATIVE INDEX 1.44 (< OR =4)
== END 2022-12-31 14:35 | disposition home or self-care (01) ==
LOC: M ED 09:41
DX: R07.9 Chest pain, unspecified (principal); R00.1 Bradycardia, unspecified; I10 Essential (primary) hypertension; G47.33 Obstructive sleep apnea (adult) (pediatric); Z88.5 Allergy status to narcotic agent; Z79.810 Long term (current) use of selective estrogen receptor modulators (SERMs); Z79.1 Long term (current) use of non-steroidal anti-inflammatories (NSAID); Z79.899 Other long term (current) drug therapy; Z79.891 Long term (current) use of opiate analgesic; Z79.52 Long term (current) use of systemic steroids

== ENCOUNTER → 2023-02-19 | Outpatient (CLI) | payer OTHER ==
[~2023-02-19] MED LIST changes: +FLUT50SP17; -FLUTISP
[2023-02-19 17:57] LABS: FREE T4 0.93 NG/DL (0.89-1.76)
[2023-02-19 17:58] LABS: THYROID STIMULATING HORMONE 1.431 uIU/ML (0.55-4.78)
[2023-02-19 18:00] LABS: ALBUMIN 3.9 G/DL (3.2-5.2); ALKALINE PHOSPHATASE 74 U/L (46-116); ALT/SGPT 15 U/L (7.0-40); AST/SGOT < 8 U/L (<34); BILIRUBIN,TOTAL 0.4 MG/DL (0.3-1.2); BLOOD UREA NITROGEN 17 MG/DL (9-23); CALCIUM LEVEL 8.6 MG/DL (8.3-10.6); CARBON DIOXIDE LEVEL 30 MMOL/L (20-31); CHLORIDE LEVEL 107 MMOL/L (98-107); GLOMERULAR FILTRATION RATE > 60.0 (>45); GLUCOSE, FASTING 98 MG/DL (74-106); POTASSIUM SERUM 4.4 MMOL/L (3.5-5.1); SODIUM LEVEL 142 MMOL/L (136-145); TOTAL PROTEIN 6.5 G/DL (5.7-8.2)
== END ==
LOC: M WUC 13:18
PROVIDERS: ATTEND Nurse Practitioner Family
DX: R73.01 Impaired fasting glucose (principal); E66.01 Morbid (severe) obesity due to excess calories

== ENCOUNTER 2023-02-21 15:06 | Emergency (ER) | payer OTHER ==
[~2023-02-21] VITALS: Ht 165.1 cm; Wt 111.4 kg
[2023-02-21 15:08] VITALS: BP 176/88
== END 2023-02-21 16:11 | disposition home or self-care (01) ==
LOC: M ED 15:06
DX: S90.31XA Contusion of right foot, initial encounter (principal); W20.8XXA Other cause of strike by thrown, projected or falling object, initial encounter; I25.2 Old myocardial infarction; K21.9 Gastro-esophageal reflux disease without esophagitis; Z86.79 Personal history of other diseases of the circulatory system; Y92.009 Unspecified place in unspecified non-institutional (private) residence as the place of occurrence of the external cause; Z88.1 Allergy status to other antibiotic agents; Z88.5 Allergy status to narcotic agent; Z88.8 Allergy status to other drugs, medicaments and biological substances; Z79.52 Long term (current) use of systemic steroids; Z79.899 Other long term (current) drug therapy; Z79.891 Long term (current) use of opiate analgesic

== ENCOUNTER 2023-02-28 10:45 | Emergency (ER) | payer OTHER ==
[~2023-02-28] VITALS: Ht 165.1 cm; Wt 111.4 kg
[2023-02-28 10:46] VITALS: BP 140/80
[2023-02-28] MEDS ORDERED: LEXA1TAB2 (10:56)
[2023-02-28] MEDS ORDERED: ESTR62CR (10:56)
[2023-02-28] MEDS ORDERED: ALIR75PE3 (10:56)
[2023-02-28] MEDS ORDERED: AMLO1TAB24 (10:56)
[2023-02-28] MEDS ORDERED: DEXL60CA (10:56)
[2023-02-28] MEDS ORDERED: NORCO, ANEXSIA 5/325MG TABLET (HYDROcodone/ACETAMINOPHEN) PO ONE (12:40)
[2023-02-28] MEDS ORDERED: HYDR-3713 PO (13:07)
== END 2023-02-28 13:19 | disposition home or self-care (01) ==
LOC: M ED 10:45
DX: S83.412A Sprain of medial collateral ligament of left knee, initial encounter (principal); K21.9 Gastro-esophageal reflux disease without esophagitis; G47.33 Obstructive sleep apnea (adult) (pediatric); I10 Essential (primary) hypertension; E03.9 Hypothyroidism, unspecified; M54.50 Low back pain, unspecified; Z87.42 Personal history of other diseases of the female genital tract; Z88.1 Allergy status to other antibiotic agents; Z88.5 Allergy status to narcotic agent; Z88.8 Allergy status to other drugs, medicaments and biological substances; Z79.899 Other long term (current) drug therapy

== ENCOUNTER → 2023-04-26 | Outpatient (REF) | payer OTHER ==
[~2023-04-26] MED LIST changes: +ALIR75PE3; +AMLO1TAB24; +DEXL60CA; +ESTR62CR; +HYDR-3713 PO; +LEXA1TAB2
== END ==
LOC: M LAB REF 17:34
PROVIDERS: ATTEND Internal Medicine Cardiovascular Disease
DX: I50.32 Chronic diastolic (congestive) heart failure (principal)

== ENCOUNTER 2023-04-30 16:22 | Emergency (ER) | payer OTHER ==
[2023-04-30 17:25] LABS: BASO # 0.1 10^3/uL (0.0-0.2); BASO % 0.6 % (0.0-1.0); EOS # 0.2 10^3/uL (0.0-0.5); EOS % 2.7 % (0.0-3.0); HEMATOCRIT 42.7 % (36.0-47.0); HEMOGLOBIN 13.9 g/dl (12.0-15.5); LYMPH # 2.6 10^3/uL (1.5-5.0); LYMPH % 32.9 % (24.0-44.0); MEAN CORPUSCULAR HEMOGLOBIN 29.1 pg (27.0-33.0); MEAN CORPUSCULAR HGB CONC 32.6 g/dl (32.0-36.5); MEAN CORPUSCULAR VOLUME 89.3 fl (80.0-96.0); MONO # 0.4 10^3/uL (0.0-0.8); MONO % 5.3 % (2.0-8.0); NEUTROPHILS # 4.5 10^3/uL (1.5-8.5); NEUTROPHILS % 58.2 % (36.0-66.0); PLATELET COUNT, AUTOMATED 287 10^3/uL (150-450); RED BLOOD COUNT 4.78 10^6/uL (4.00-5.40); WHITE BLOOD COUNT 7.8 10^3/uL (4.0-10.0)
[2023-04-30] MEDS ORDERED: ASPIRIN 81MG CHEW TABLET PO ONE (17:25)
[2023-04-30 17:36] LABS: INR 0.95; PROTHROMBIN TIME 12.9 SECONDS (12.5-14.5)
[2023-04-30 17:37] LABS: PARTIAL THROMBOPLASTIN TIME 27.3 SECONDS (24.8-34.2)
[2023-04-30] MEDS: NITROGLYCERIN 0.4MG SUBL TABLET SL PRN ×2 (17:40→17:49)
[2023-04-30 17:49] VITALS: BP 114/58
[2023-04-30 17:54] LABS: THYROID STIMULATING HORMONE 1.709 uIU/ML (0.55-4.78)
[2023-04-30 17:55] LABS: FREE T4 0.96 NG/DL (0.89-1.76)
[2023-04-30 17:58] LABS: ALBUMIN 3.9 G/DL (3.2-5.2); ALKALINE PHOSPHATASE 64 U/L (46-116); ALT/SGPT 20 U/L (7.0-40); AST/SGOT 25 U/L (<34); BILIRUBIN,DIRECT < 0.1 MG/DL (<0.4); BILIRUBIN,TOTAL 0.4 MG/DL (0.3-1.2); BLOOD UREA NITROGEN 17 MG/DL (9-23); CALCIUM LEVEL 8.6 MG/DL (8.3-10.6); CARBON DIOXIDE LEVEL 27 MMOL/L (20-31); CHLORIDE LEVEL 108 MMOL/L (98-107); CK-MB VALUE MASS 2.6 NG/ML (<3.6); CPK CREATINE PHOSPHOKINASE 101 U/L (34-145); CREATININE FOR GFR 0.72 MG/DL (0.55-1.30); GLOMERULAR FILTRATION RATE > 60.0 (>45); GLUCOSE, FASTING 85 MG/DL (74-106); LIPASE 36 U/L (12-53); MB/CK RELATIVE INDEX 2.57 (< OR =4); POTASSIUM SERUM 4.8 MMOL/L (3.5-5.1); SODIUM LEVEL 140 MMOL/L (136-145); TOTAL PROTEIN 6.5 G/DL (5.7-8.2)
[2023-04-30] MEDS ORDERED: ISOVUE-370 76% 100ML VIAL As Ordered ONE (18:12)
[2023-04-30 18:44] LABS: CK-MB VALUE MASS 1.6 NG/ML (<3.6); MB/CK RELATIVE INDEX 1.72 (< OR =4)
[2023-04-30 19:30] VITALS: BP 129/60; TEMP 98; O2SAT 98
== END 2023-04-30 19:46 | disposition home or self-care (01) ==
LOC: M ED 16:22
DX: R07.9 Chest pain, unspecified (principal); I10 Essential (primary) hypertension; E78.5 Hyperlipidemia, unspecified; I25.2 Old myocardial infarction; Z88.4 Allergy status to anesthetic agent; Z88.5 Allergy status to narcotic agent; Z88.8 Allergy status to other drugs, medicaments and biological substances; Z79.811 Long term (current) use of aromatase inhibitors; Z79.899 Other long term (current) drug therapy
CPT/HCPCS: 36415; 71275; 80048; 80076; 82550; 82553; 83690; 83880; 84439; 84443; 84484; 85025; 85610; 85730; 93005; 93041; 93970; 94760; 99285; Q9967

== ENCOUNTER → 2023-05-03 | Outpatient (CLI) | payer OTHER ==
[2023-05-03 17:06] LABS: BASO # 0.1 10^3/uL (0.0-0.2); BASO % 0.9 % (0.0-1.0); EOS # 0.2 10^3/uL (0.0-0.5); EOS % 2.9 % (0.0-3.0); HEMATOCRIT 44.6 % (36.0-47.0); HEMOGLOBIN 14.2 g/dl (12.0-15.5); LYMPH # 2.5 10^3/uL (1.5-5.0); LYMPH % 32.4 % (24.0-44.0); MEAN CORPUSCULAR HEMOGLOBIN 29.1 pg (27.0-33.0); MEAN CORPUSCULAR HGB CONC 31.8 g/dl (32.0-36.5); MEAN CORPUSCULAR VOLUME 91.4 fl (80.0-96.0); MONO # 0.4 10^3/uL (0.0-0.8); MONO % 5.7 % (2.0-8.0); NEUTROPHILS # 4.4 10^3/uL (1.5-8.5); NEUTROPHILS % 57.8 % (36.0-66.0); PLATELET COUNT, AUTOMATED 323 10^3/uL (150-450); RED BLOOD COUNT 4.88 10^6/uL (4.00-5.40); WHITE BLOOD COUNT 7.6 10^3/uL (4.0-10.0)
[2023-05-03 17:11] LABS: BLOOD UREA NITROGEN 19 MG/DL (9-23); CALCIUM LEVEL 8.4 MG/DL (8.3-10.6); CARBON DIOXIDE LEVEL 31 MMOL/L (20-31); CHLORIDE LEVEL 107 MMOL/L (98-107); CREATININE FOR GFR 0.84 MG/DL (0.55-1.30); GLOMERULAR FILTRATION RATE > 60.0 (>45); GLUCOSE, FASTING 78 MG/DL (74-106); POTASSIUM SERUM 4.4 MMOL/L (3.5-5.1); SODIUM LEVEL 141 MMOL/L (136-145)
[2023-05-03 17:18] LABS: URIC ACID 4.1 MG/DL (3.1-7.8)
== END ==
LOC: M WUC 11:55
PROVIDERS: ATTEND Nurse Practitioner Family
DX: M79.674 Pain in right toe(s) (principal)

== ENCOUNTER 2023-08-16 03:08 | Emergency (ER) | payer OTHER ==
[~2023-08-16] VITALS: Ht 162.6 cm; Wt 107.6 kg
[2023-08-16 05:31] LABS: BASO # 0.1 10^3/uL (0.0-0.2); BASO % 0.6 % (0.0-1.0); EOS # 0.4 10^3/uL (0.0-0.5); HEMATOCRIT 46.7 % (36.0-47.0); HEMOGLOBIN 15.5 g/dl (12.0-15.5); LYMPH # 2.5 10^3/uL (1.5-5.0); LYMPH % 25.5 % (24.0-44.0); MEAN CORPUSCULAR HEMOGLOBIN 28.7 pg (27.0-33.0); MEAN CORPUSCULAR HGB CONC 33.2 g/dl (32.0-36.5); MEAN CORPUSCULAR VOLUME 86.5 fl (80.0-96.0); MONO # 0.7 10^3/uL (0.0-0.8); NEUTROPHILS % 62.5 % (36.0-66.0); PLATELET COUNT, AUTOMATED 340 10^3/uL (150-450); WHITE BLOOD COUNT 9.6 10^3/uL (4.0-10.0)
[2023-08-16 05:43] LABS: ALBUMIN 3.9 G/DL (3.2-5.2); BILIRUBIN,DIRECT 0.2 MG/DL (<0.4); BILIRUBIN,TOTAL 0.7 MG/DL (0.3-1.2); BLOOD UREA NITROGEN 12 MG/DL (9-23); CALCIUM LEVEL 8.9 MG/DL (8.3-10.6); CARBON DIOXIDE LEVEL 30 MMOL/L (20-31); CHLORIDE LEVEL 99 MMOL/L (98-107); GLOMERULAR FILTRATION RATE > 60.0 (>45); GLUCOSE, FASTING 88 MG/DL (74-106); MAGNESIUM LEVEL 1.8 MG/DL (1.8-2.4); POTASSIUM SERUM 3.4 MMOL/L (3.5-5.1); SODIUM LEVEL 139 MMOL/L (136-145)
[2023-08-16] MEDS ORDERED: POTASSIUM CHLORIDE 10% LIQ 20MEQ/15ML UDC PO ONE (07:00)
[2023-08-16] MEDS ORDERED: POTA20EL PO (07:02)
[2023-08-16 07:12] VITALS: BP 142/85; TEMP 97.7
[2023-08-16 07:21] VITALS: O2SAT 97
== END 2023-08-16 07:25 | disposition home or self-care (01) ==
LOC: M ED 03:08
DX: E87.6 Hypokalemia (principal); M79.18 Myalgia, other site; K21.9 Gastro-esophageal reflux disease without esophagitis; M54.50 Low back pain, unspecified; E03.9 Hypothyroidism, unspecified; G47.33 Obstructive sleep apnea (adult) (pediatric); Z98.84 Bariatric surgery status; Z87.42 Personal history of other diseases of the female genital tract; Z88.1 Allergy status to other antibiotic agents; Z88.4 Allergy status to anesthetic agent; Z88.5 Allergy status to narcotic agent; Z88.8 Allergy status to other drugs, medicaments and biological substances; Z79.899 Other long term (current) drug therapy; Z79.620 Long term (current) use of immunosuppressive biologic

== ENCOUNTER → 2023-09-13 | Outpatient (CLI) | payer OTHER ==
[~2023-09-13] MED LIST changes: +POTA20EL PO
[2023-09-13 19:56] LABS: HEMATOCRIT 42.6 % (36.0-47.0)
[2023-09-13 20:03] LABS: BASO % 0.5 % (0.0-1.0); EOS # 0.2 10^3/uL (0.0-0.5); EOS % 2.9 % (0.0-3.0); HEMATOCRIT 42.3 % (36.0-47.0); HEMOGLOBIN 13.5 g/dl (12.0-15.5); LYMPH # 2.6 10^3/uL (1.5-5.0); MEAN CORPUSCULAR HEMOGLOBIN 29.1 pg (27.0-33.0); MEAN CORPUSCULAR HGB CONC 31.9 g/dl (32.0-36.5); MEAN CORPUSCULAR VOLUME 91.2 fl (80.0-96.0); MONO # 0.4 10^3/uL (0.0-0.8); MONO % 5.3 % (2.0-8.0); NEUTROPHILS # 4.6 10^3/uL (1.5-8.5); PLATELET COUNT, AUTOMATED 237 10^3/uL (150-450); RED BLOOD COUNT 4.64 10^6/uL (4.00-5.40)
[2023-09-13 20:24] LABS: ALBUMIN 3.5 G/DL (3.2-5.2); ALKALINE PHOSPHATASE 54 U/L (46-116); ALT/SGPT 24 U/L (7.0-40); AST/SGOT 15 U/L (<34); BILIRUBIN,TOTAL 0.4 MG/DL (0.3-1.2); BLOOD UREA NITROGEN 16 MG/DL (9-23); CALCIUM LEVEL 8.8 MG/DL (8.3-10.6); CARBON DIOXIDE LEVEL 26 MMOL/L (20-31); CHLORIDE LEVEL 108 MMOL/L (98-107); CREATININE FOR GFR 0.65 MG/DL (0.55-1.30); GLOMERULAR FILTRATION RATE > 60.0 (>45); GLUCOSE, FASTING 94 MG/DL (74-106); IRON (FE) 45 UG/DL (50-170); MAGNESIUM LEVEL 1.9 MG/DL (1.8-2.4); PERCENT SATURATION 17.9 % (13.2-45.0); PHOSPHORUS LEVEL 3.3 MG/DL (2.4-5.1); SODIUM LEVEL 140 MMOL/L (136-145); TOTAL IRON BINDING CAPACITY 252 UG/DL (250-425)
[2023-09-13 20:26] LABS: FERRITIN 152.5 NG/ML (7.3-270.7); TOTAL 25(OH) VITAMIN D 60.6 NG/ML (20.0-100.0); VITAMIN B12 LEVEL 1042 PG/ML (211-911)
== END ==
LOC: M WUC 15:43
PROVIDERS: ATTEND Surgery
DX: K91.2 Postsurgical malabsorption, not elsewhere classified (principal); Z98.84 Bariatric surgery status; E55.9 Vitamin D deficiency, unspecified

== ENCOUNTER → 2023-10-09 | Outpatient (REF) | payer OTHER ==
[~2023-10-09] MED LIST changes: -FLUT50SP17; +FLUTISP
== END ==
LOC: M LAB REF 17:21
PROVIDERS: ATTEND Registered Nurse
DX: R11.0 Nausea (principal); N39.0 Urinary tract infection, site not specified

== ENCOUNTER → 2023-10-19 | Outpatient (CLI) | payer OTHER ==
[2023-10-19 16:55] LABS: BASO % 0.5 % (0.0-1.0); EOS # 0.2 10^3/uL (0.0-0.5); HEMATOCRIT 46.5 % (36.0-47.0); HEMOGLOBIN 14.9 g/dl (12.0-15.5); LYMPH % 26.9 % (24.0-44.0); MEAN CORPUSCULAR HEMOGLOBIN 29.2 pg (27.0-33.0); MONO # 0.5 10^3/uL (0.0-0.8); MONO % 6.6 % (2.0-8.0); NEUTROPHILS # 4.8 10^3/uL (1.5-8.5); NEUTROPHILS % 63.6 % (36.0-66.0); PLATELET COUNT, AUTOMATED 279 10^3/uL (150-450); RED BLOOD COUNT 5.11 10^6/uL (4.00-5.40); WHITE BLOOD COUNT 7.5 10^3/uL (4.0-10.0)
[2023-10-19 17:12] LABS: LIPASE 36 U/L (12-53)
[2023-10-19 17:14] LABS: AMYLASE 40 U/L (30-118)
[2023-10-19 17:15] LABS: ALBUMIN 3.8 G/DL (3.2-5.2); ALKALINE PHOSPHATASE 64 U/L (46-116); ALT/SGPT 18 U/L (7.0-40); AST/SGOT 15 U/L (<34); BILIRUBIN,TOTAL 0.5 MG/DL (0.3-1.2); BLOOD UREA NITROGEN 13 MG/DL (9-23); CALCIUM LEVEL 9.7 MG/DL (8.3-10.6); CARBON DIOXIDE LEVEL 26 MMOL/L (20-31); CHLORIDE LEVEL 106 MMOL/L (98-107); GLOMERULAR FILTRATION RATE > 60.0 (>45); GLUCOSE, FASTING 110 MG/DL (74-106); POTASSIUM SERUM 4.4 MMOL/L (3.5-5.1); SODIUM LEVEL 142 MMOL/L (136-145); TOTAL PROTEIN 6.3 G/DL (5.7-8.2)
== END ==
LOC: M WUC 13:19
PROVIDERS: ATTEND Registered Nurse
DX: R11.0 Nausea (principal)

== ENCOUNTER → 2024-01-31 | Outpatient (CLI) | payer OTHER ==
[~2024-01-31] MED LIST changes: -POTA20EL PO; +POTA20LI16 PO
== END ==
LOC: M SLEEP 20:00
PROVIDERS: ATTEND Nurse Practitioner Family
DX: G47.33 Obstructive sleep apnea (adult) (pediatric) (principal)

== ENCOUNTER → 2024-02-01 | Outpatient (REF) | payer OTHER ==
[2024-02-01 16:54] LABS: MAGNESIUM LEVEL 1.9 MG/DL (1.8-2.4); PHOSPHORUS LEVEL 3.4 MG/DL (2.4-5.1)
== END ==
LOC: M LABWUC 16:08
PROVIDERS: ATTEND Physician Assistant Surgical
DX: K21.9 Gastro-esophageal reflux disease without esophagitis (principal); E55.9 Vitamin D deficiency, unspecified; Z98.84 Bariatric surgery status

== ENCOUNTER → 2024-03-27 | Outpatient (CLI) | payer OTHER ==
[~2024-03-27] MED LIST changes: +GASTROGRAFIN SOLUTION 30ML As Ordered ONE; +ISOVUE-370 76% 100ML VIAL As Ordered ONE
== END ==
LOC: M RAD 13:33
PROVIDERS: ATTEND Physician Assistant Surgical
DX: R10.13 Epigastric pain (principal); Z98.84 Bariatric surgery status
CPT/HCPCS: 74177; Q9963; Q9967

== ENCOUNTER 2024-05-04 08:50 | Emergency (ER) | payer OTHER ==
[~2024-05-04] VITALS: Ht 165.1 cm; Wt 72.6 kg
[~2024-05-04 08:50] MED LIST changes: -DEXL60CA; +DEXL60CA13; -GASTROGRAFIN SOLUTION 30ML As Ordered ONE; -ISOVUE-370 76% 100ML VIAL As Ordered ONE
[2024-05-04] MEDS: KETOROLAC 30 MG/ML 1ML VIAL IM ONE (10:24)
[2024-05-04 11:40] VITALS: BP 125/58; TEMP 97.4; O2SAT 99
[2024-05-04] MEDS ORDERED: PRED20TA PO (11:49)
== END 2024-05-04 11:42 | disposition home or self-care (01) ==
LOC: M ED 08:50
DX: M17.12 Unilateral primary osteoarthritis, left knee (principal); M25.562 Pain in left knee; K21.9 Gastro-esophageal reflux disease without esophagitis; E03.9 Hypothyroidism, unspecified; Z79.899 Other long term (current) drug therapy; Z79.52 Long term (current) use of systemic steroids; Z88.5 Allergy status to narcotic agent; Z88.8 Allergy status to other drugs, medicaments and biological substances
CPT/HCPCS: 73564; 96372; 99283; J1885

== ENCOUNTER → 2024-08-04 | Outpatient (CLI) | payer OTHER ==
[~2024-08-04] MED LIST changes: +GABA-1172; -GABA-282; +ISOVUE-370 76% 100ML VIAL ONE
[2024-08-04 16:14] LABS: BASO # 0.1 10^3/uL (0.0-0.2); BASO % 0.8 % (0.0-1.0); EOS # 0.1 10^3/uL (0.0-0.5); EOS % 1.4 % (0.0-3.0); HEMATOCRIT 42.6 % (36.0-47.0); HEMOGLOBIN 13.3 g/dl (12.0-15.5); LYMPH # 2.5 10^3/uL (1.5-5.0); LYMPH % 34.7 % (24.0-44.0); MEAN CORPUSCULAR HGB CONC 31.2 g/dl (32.0-36.5); MEAN CORPUSCULAR VOLUME 96.2 fl (80.0-96.0); MONO # 0.4 10^3/uL (0.0-0.8); MONO % 5.3 % (2.0-8.0); NEUTROPHILS # 4.1 10^3/uL (1.5-8.5); NEUTROPHILS % 57.7 % (36.0-66.0); PLATELET COUNT, AUTOMATED 301 10^3/uL (150-450); RED BLOOD COUNT 4.43 10^6/uL (4.00-5.40); WHITE BLOOD COUNT 7.1 10^3/uL (4.0-10.0)
[2024-08-04 16:43] LABS: ALBUMIN 3.7 G/DL (3.2-5.2); ALKALINE PHOSPHATASE 55 U/L (46-116); ALT/SGPT 19 U/L (7.0-40); AST/SGOT 10 U/L (<34); BILIRUBIN,TOTAL 0.5 MG/DL (0.3-1.2); BLOOD UREA NITROGEN 19 MG/DL (9-23); CALCIUM LEVEL 9.4 MG/DL (8.3-10.6); CARBON DIOXIDE LEVEL 30 MMOL/L (20-31); CHLORIDE LEVEL 106 MMOL/L (98-107); CREATININE FOR GFR 0.65 MG/DL (0.55-1.30); GLOMERULAR FILTRATION RATE > 60.0 (>45); GLUCOSE, FASTING 88 MG/DL (74-106); POTASSIUM SERUM 4.7 MMOL/L (3.5-5.1); SODIUM LEVEL 139 MMOL/L (136-145); TOTAL PROTEIN 6.5 G/DL (5.7-8.2)
== END ==
LOC: M PLAIMG 13:04
PROVIDERS: ATTEND Registered Nurse
DX: R10.11 Right upper quadrant pain (principal)

== ENCOUNTER → 2024-09-03 | Outpatient (CLI) | payer OTHER ==
[~2024-09-03] MED LIST changes: +E-Z-HD 98% w/w 340GM SUSP BTL As Ordered ONE; +E-Z-PAQUE 96% w/w SUSP 176GM BTL As Ordered ONE; -ISOVUE-370 76% 100ML VIAL ONE
== END ==
LOC: M RAD 08:23
PROVIDERS: ATTEND Physician Assistant Surgical
DX: Z98.84 Bariatric surgery status (principal); R10.13 Epigastric pain; K91.2 Postsurgical malabsorption, not elsewhere classified; K21.9 Gastro-esophageal reflux disease without esophagitis

== ENCOUNTER 2024-11-03 12:27 | Emergency (ER) | payer OTHER ==
[~2024-11-03] VITALS: Ht 165.1 cm; Wt 69.1 kg
[~2024-11-03 12:27] MED LIST changes: -E-Z-HD 98% w/w 340GM SUSP BTL As Ordered ONE; -E-Z-PAQUE 96% w/w SUSP 176GM BTL As Ordered ONE
[2024-11-03] MEDS ORDERED: LEXA1TAB (14:29)
[2024-11-03] MEDS ORDERED: FAMO1TAB11 (14:29)
[2024-11-03] MEDS ORDERED: SUCR1TAB56 (14:29)
[2024-11-03] MEDS ORDERED: ECOT81TA5 PO (14:30)
[2024-11-03] MEDS: ACETAMINOPHEN 500 MG TAB PO ONE (15:42)
[2024-11-03] MEDS: KETOROLAC 30 MG/ML 1ML VIAL IM ONE (15:42)
[2024-11-03] MEDS: ONDANSETRON 4MG ORAL DISINTEGRATING TAB PO ONE (15:46)
[2024-11-03] MEDS ORDERED: METH-1164 PO (17:21)
[2024-11-03] MEDS: predniSONE 20 MG TAB PO ONE (17:26)
[2024-11-03] MEDS: methocarbamoL 500 MG TAB PO ONE (17:26)
[2024-11-03 17:28] VITALS: BP 141/71; TEMP 97.6; O2SAT 98
== END 2024-11-03 17:36 | disposition home or self-care (01) ==
LOC: M ED 12:27
DX: M54.6 Pain in thoracic spine (principal); S43.401A Unspecified sprain of right shoulder joint, initial encounter; Y92.019 Unspecified place in single-family (private) house as the place of occurrence of the external cause; Y93.9 Activity, unspecified; Y99.9 Unspecified external cause status; W08.XXXA Fall from other furniture, initial encounter; I50.22 Chronic systolic (congestive) heart failure; K21.9 Gastro-esophageal reflux disease without esophagitis; G47.33 Obstructive sleep apnea (adult) (pediatric); Z88.1 Allergy status to other antibiotic agents; Z88.5 Allergy status to narcotic agent; Z88.8 Allergy status to other drugs, medicaments and biological substances; Z79.1 Long term (current) use of non-steroidal anti-inflammatories (NSAID); Z79.899 Other long term (current) drug therapy
CPT/HCPCS: 70450; 72072; 72125; 73030; 96372; 99283; J1885; J7512

== ENCOUNTER → 2024-11-08 | Outpatient (CLI) | payer OTHER ==
[~2024-11-08] MED LIST changes: +ECOT81TA5 PO; +FAMO1TAB11; +LEXA1TAB; +METH-1164 PO; +SUCR1TAB56
[2024-11-08 10:12] LABS: IRON (FE) 126 UG/DL (50-170); PERCENT SATURATION 43.4 % (13.2-45.0); TOTAL IRON BINDING CAPACITY 290 UG/DL (250-425)
[2024-11-08 10:13] LABS: ALBUMIN 3.5 G/DL (3.2-5.2); ALKALINE PHOSPHATASE 58 U/L (35-104); ALT/SGPT 15 U/L (7.0-40); AST/SGOT 12 U/L (<34); BILIRUBIN,TOTAL 0.7 MG/DL (0.3-1.2); BLOOD UREA NITROGEN 15 MG/DL (9-23); CALCIUM LEVEL 8.9 MG/DL (8.3-10.6); CARBON DIOXIDE LEVEL 32 MMOL/L (20-31); CHLORIDE LEVEL 107 MMOL/L (98-107); CHOLESTEROL LEVEL 228 MG/DL (<200); CHOLESTEROL RISK RATIO 2.94 (<5); CREATININE FOR GFR 0.68 MG/DL (0.55-1.30); FERRITIN 116.3 NG/ML (7.3-270.7); FOLATE > 24.0 NG/ML (>5.4); GLOMERULAR FILTRATION RATE > 60.0 (>45); GLUCOSE, FASTING 89 MG/DL (74-106); HDL CHOLESTEROL 77.5 MG/DL (>40); LDL CHOLESTEROL 135.5 MG/DL (<100); NON-HDL-C 150.5 MG/DL; POTASSIUM SERUM 4.3 MMOL/L (3.5-5.1); SODIUM LEVEL 145 MMOL/L (136-145); TOTAL PROTEIN 6.2 G/DL (5.7-8.2); TRIGLYCERIDES LEVEL 75 MG/DL (<150)
[2024-11-08 10:15] LABS: VITAMIN B12 LEVEL 624 PG/ML (211-911)
== END ==
LOC: M LAB 08:33
PROVIDERS: ATTEND Nurse Practitioner Family
DX: E78.2 Mixed hyperlipidemia (principal); Z98.84 Bariatric surgery status

== ENCOUNTER → 2024-11-10 | Outpatient (CLI) | payer OTHER ==
[2024-11-10 16:41] LABS: BASO # 0.1 10^3/uL (0.0-0.2); EOS # 0.2 10^3/uL (0.0-0.5); EOS % 2.9 % (0.0-3.0); HEMATOCRIT 41.8 % (36.0-47.0); HEMOGLOBIN 13.5 g/dl (12.0-15.5); LYMPH # 2.4 10^3/uL (1.5-5.0); LYMPH % 40.4 % (24.0-44.0); MEAN CORPUSCULAR HEMOGLOBIN 30.3 pg (27.0-33.0); MEAN CORPUSCULAR HGB CONC 32.3 g/dl (32.0-36.5); MEAN CORPUSCULAR VOLUME 93.7 fl (80.0-96.0); MONO # 0.4 10^3/uL (0.0-0.8); MONO % 7.5 % (2.0-8.0); NEUTROPHILS # 2.8 10^3/uL (1.5-8.5); PLATELET COUNT, AUTOMATED 297 10^3/uL (150-450); RED BLOOD COUNT 4.46 10^6/uL (4.00-5.40); WHITE BLOOD COUNT 5.8 10^3/uL (4.0-10.0)
[2024-11-10 17:06] LABS: HEMOGLOBIN A1c 4.9 % (4.0-6.0)
== END ==
LOC: M WUC 10:52
PROVIDERS: ATTEND Nurse Practitioner Family
DX: Z01.818 Encounter for other preprocedural examination (principal)

== ENCOUNTER → 2024-12-12 | Outpatient (CLI) | payer OTHER ==
[2024-12-12 17:29] LABS: HEMATOCRIT 41.4 % (36.0-47.0)
[2024-12-12 17:34] LABS: BASO # 0.1 10^3/uL (0.0-0.2); BASO % 1.1 % (0.0-1.0); EOS # 0.5 10^3/uL (0.0-0.5); EOS % 9.6 % (0.0-3.0); HEMATOCRIT 41.8 % (36.0-47.0); HEMOGLOBIN 13.5 g/dl (12.0-15.5); LYMPH # 1.7 10^3/uL (1.5-5.0); LYMPH % 30.2 % (24.0-44.0); MEAN CORPUSCULAR HEMOGLOBIN 30.5 pg (27.0-33.0); MEAN CORPUSCULAR HGB CONC 32.3 g/dl (32.0-36.5); MEAN CORPUSCULAR VOLUME 94.6 fl (80.0-96.0); MONO # 0.3 10^3/uL (0.0-0.8); MONO % 5.7 % (2.0-8.0); NEUTROPHILS % 53.2 % (36.0-66.0); PLATELET COUNT, AUTOMATED 261 10^3/uL (150-450); RED BLOOD COUNT 4.42 10^6/uL (4.00-5.40); WHITE BLOOD COUNT 5.6 10^3/uL (4.0-10.0)
[2024-12-12 17:38] LABS: FERRITIN 153.8 NG/ML (7.3-270.7); IRON (FE) 101 UG/DL (50-170); PERCENT SATURATION 36.3 % (13.2-45.0); TOTAL 25(OH) VITAMIN D 79.7 NG/ML (20.0-100.0); TOTAL IRON BINDING CAPACITY 278 UG/DL (250-425)
[2024-12-12 17:39] LABS: ALBUMIN 3.7 G/DL (3.2-5.2); ALKALINE PHOSPHATASE 56 U/L (35-104); ALT/SGPT 24 U/L (7.0-40); AST/SGOT 17 U/L (<34); BILIRUBIN,TOTAL 0.4 MG/DL (0.3-1.2); BLOOD UREA NITROGEN 17 MG/DL (9-23); CALCIUM LEVEL 9.1 MG/DL (8.3-10.6); CARBON DIOXIDE LEVEL 31 MMOL/L (20-31); CHLORIDE LEVEL 108 MMOL/L (98-107); CREATININE FOR GFR 0.62 MG/DL (0.55-1.30); GLOMERULAR FILTRATION RATE > 60.0 (>45); GLUCOSE, FASTING 95 MG/DL (74-106); PHOSPHORUS LEVEL 4.3 MG/DL (2.4-5.1); POTASSIUM SERUM 4.9 MMOL/L (3.5-5.1); SODIUM LEVEL 146 MMOL/L (136-145); TOTAL PROTEIN 6.4 G/DL (5.7-8.2); VITAMIN B12 LEVEL 707 PG/ML (211-911)
[2024-12-12 17:52] LABS: HEMOGLOBIN A1c 4.9 % (4.0-6.0)
== END ==
LOC: M WUC 10:10
PROVIDERS: ATTEND Surgery
DX: K91.2 Postsurgical malabsorption, not elsewhere classified (principal); Z98.84 Bariatric surgery status; E55.9 Vitamin D deficiency, unspecified

== ENCOUNTER 2025-03-06 14:55 | Emergency (ER) | payer OTHER ==
[~2025-03-06] VITALS: Ht 165.1 cm; Wt 67.3 kg
[~2025-03-06 14:55] MED LIST changes: -PHEN-239; -PHEN-239 PO; +PHEN37.511; +PHEN37.511 PO
[2025-03-06 15:01] VITALS: BP 135/74; TEMP 97.8; O2SAT 99
== END 2025-03-06 15:34 | disposition left against medical advice (07) ==
LOC: M ED 14:55 → EDBD 14:55 → M ED 15:34
DX: Z53.21 Procedure and treatment not carried out due to patient leaving prior to being seen by health care provider (principal)

== ENCOUNTER → 2025-06-11 | Outpatient (CLI) | payer OTHER ==
[~2025-06-11] MED LIST changes: -PRAV20TA2; +PRAV20TA78
== END ==
LOC: M PLAIMG 07:34
PROVIDERS: ATTEND Physician Assistant Medical
DX: S09.93XA Unspecified injury of face, initial encounter (principal); X58.XXXA Exposure to other specified factors, initial encounter; Y92.9 Unspecified place or not applicable; Y93.9 Activity, unspecified; Y99.9 Unspecified external cause status

== ENCOUNTER → 2025-06-30 | Outpatient (CLI) | payer OTHER ==
[2025-06-30 13:18] LABS: CHOLESTEROL LEVEL 185.0 MG/DL (<200); CHOLESTEROL RISK RATIO 2.43 (<5); LDL CHOLESTEROL 90.7 MG/DL (<100); NON-HDL-C 109.1 MG/DL; TRIGLYCERIDES LEVEL 92.0 MG/DL (<150)
== END ==
LOC: M WUC 08:22
PROVIDERS: ATTEND Physician Assistant
DX: E78.5 Hyperlipidemia, unspecified (principal)

== ENCOUNTER → 2025-07-01 | Outpatient (CLI) | payer OTHER | LOC: M EKG 10:14 | PROVIDERS: ATTEND Physician Assistant | DX: R00.1 Bradycardia, unspecified (principal) ==

== ENCOUNTER → 2025-08-03 | Outpatient (CLI) | payer OTHER | LOC: M PLAIMG 11:51 | PROVIDERS: ATTEND Nurse Practitioner Family | DX: R07.89 Other chest pain (principal) ==

== ENCOUNTER → 2025-08-20 | Outpatient (CLI) | payer OTHER ==
[2025-08-20 12:48] LABS: CALCIUM LEVEL 8.6 MG/DL (8.3-10.6); CARBON DIOXIDE LEVEL 31 MMOL/L (20-31); CHLORIDE LEVEL 106 MMOL/L (98-107); CREATININE FOR GFR 0.59 MG/DL (0.55-1.30); GLOMERULAR FILTRATION RATE > 90.0 (>45); POTASSIUM SERUM 4.7 MMOL/L (3.5-5.1); SODIUM LEVEL 145 MMOL/L (136-145)
== END ==
LOC: M WUC 09:52
PROVIDERS: ATTEND Nurse Practitioner Family
DX: Z01.818 Encounter for other preprocedural examination (principal)

== ENCOUNTER 2025-09-01 23:18 | Observation (INO) | payer OTHER ==
[~2025-09-01] VITALS: Ht 165.1 cm; Wt 72.8 kg
[2025-09-02] MEDS: PROCHLORPERAZINE 10MG/2ML VIAL IV ONE (00:01)
[2025-09-02] MEDS: NS (Normal Saline) 0.9% 1,000 ML IV ONE (00:01)
[2025-09-02 00:23] LABS: BASO # 0.1 10^3/uL (0.0-0.2); BASO % 1.0 % (0.0-1.0); EOS # 0.2 10^3/uL (0.0-0.5); EOS % 3.4 % (0.0-3.0); LYMPH # 2.6 10^3/uL (1.5-5.0); LYMPH % 36.7 % (24.0-44.0); MONO # 0.5 10^3/uL (0.0-0.8); MONO % 6.4 % (2.0-8.0); NEUTROPHILS # 3.7 10^3/uL (1.5-8.5); NEUTROPHILS % 52.4 % (36.0-66.0); PLATELET COUNT, AUTOMATED 261 10^3/uL (150-450)
[2025-09-02] MEDS: ONDANSETRON 4MG/2ML VIAL IV ONE (00:34)
[2025-09-02] MEDS: NS (Normal Saline) 0.9% 1,000 ML IV SCH (04:34)
[2025-09-02] MEDS: ENOXAPARIN 40 MG/0.4 ML SYRINGE (J1650 PER 10MG) SC SCH (08:47)
[2025-09-02] MEDS: ONDANSETRON 4MG/2ML VIAL IV PRN (08:47)
[2025-09-02] MEDS ORDERED: CYAN-1 PO (09:12)
[2025-09-02] MEDS ORDERED: LEXA1TAB2 PO (09:12)
[2025-09-02] MEDS ORDERED: D31000CA5 PO (09:12)
[2025-09-02] MEDS ORDERED: NYST1POW3 TOP (09:12)
[2025-09-02] MEDS ORDERED: VITA-158 PO (09:12)
[2025-09-02] MEDS ORDERED: FOLI400T5 PO (09:12)
[2025-09-02] MEDS ORDERED: HOME MED LIST COMPLETE! XX SCH (09:15)
[2025-09-02 15:20] VITALS: BP 133/60; TEMP 97.2; O2SAT 98
[2025-09-02 20:00] VITALS: BP 104/54; TEMP 98; O2SAT 97
[2025-09-02] MEDS: ACETAMINOPHEN 325 MG TAB PO ONE (21:00)
[2025-09-03] VITALS: BP 113/55; TEMP 97.2; O2SAT 94
[2025-09-03 04:00] VITALS: BP 111/55; TEMP 97; O2SAT 96
[2025-09-03 06:10] LABS: CALCIUM LEVEL 8.0 MG/DL (8.3-10.6); CARBON DIOXIDE LEVEL 28 MMOL/L (20-31); CHLORIDE LEVEL 113 MMOL/L (98-107); CREATININE FOR GFR 0.57 MG/DL (0.55-1.30); GLOMERULAR FILTRATION RATE > 90.0 (>45); POTASSIUM SERUM 4.0 MMOL/L (3.5-5.1); SODIUM LEVEL 148 MMOL/L (136-145)
[2025-09-03 08:00] VITALS: BP 110/93; TEMP 97.5; O2SAT 96
[2025-09-03 12:00] VITALS: BP 155/72; TEMP 98.2; O2SAT 100
== END 2025-09-03 13:45 | disposition home or self-care (01) ==
LOC: M ED 23:18 → M ED INP 23:19 → M MS4PR 09-02 15:20
PROVIDERS: ADMIT Student in an Organized Health Care Education/Training Program; ATTEND Student in an Organized Health Care Education/Training Program
DX: A08.11 Acute gastroenteropathy due to Norwalk agent (principal); G47.33 Obstructive sleep apnea (adult) (pediatric); K21.9 Gastro-esophageal reflux disease without esophagitis; M79.7 Fibromyalgia; E06.3 Autoimmune thyroiditis; Z90.79 Acquired absence of other genital organ(s); Z98.84 Bariatric surgery status; F41.9 Anxiety disorder, unspecified; Z79.82 Long term (current) use of aspirin; Z79.899 Other long term (current) drug therapy; Z88.1 Allergy status to other antibiotic agents; Z88.5 Allergy status to narcotic agent; Z88.8 Allergy status to other drugs, medicaments and biological substances
CPT/HCPCS: 36415; 70450; 80047; 80048; 85025; 87486; 87507; 87581; 87633; 87798; 93005; 96361; 96374; 96376; 99285; J2405

== ENCOUNTER → 2025-09-18 | Outpatient (CLI) | payer OTHER ==
[~2025-09-18] MED LIST changes: +CYAN-1 PO; +D31000CA5 PO; +E-Z-GAS II EFFERVESCENT PACKET (SODIUM BICARB./CITRIC ACID/SIMETHICONE) As Ordered ONE; +E-Z-HD 98% w/w 340 GM SUSP BTL As Ordered ONE; +E-Z-PAQUE 96% w/w SUSP 176 GM BTL As Ordered ONE; +FOLI400T5 PO; +LEXA1TAB2 PO; +NYST1POW3 TOP; +VITA-158 PO
== END ==
LOC: M RAD 09:38
PROVIDERS: ATTEND Physician Assistant Surgical
DX: K21.9 Gastro-esophageal reflux disease without esophagitis (principal); Z98.84 Bariatric surgery status; R49.9 Unspecified voice and resonance disorder; R13.10 Dysphagia, unspecified

== ENCOUNTER → 2025-09-25 | Outpatient (CLI) | payer OTHER ==
[~2025-09-25] MED LIST changes: -E-Z-GAS II EFFERVESCENT PACKET (SODIUM BICARB./CITRIC ACID/SIMETHICONE) As Ordered ONE; -E-Z-HD 98% w/w 340 GM SUSP BTL As Ordered ONE; -E-Z-PAQUE 96% w/w SUSP 176 GM BTL As Ordered ONE
== END ==
LOC: M WHC 10:17
PROVIDERS: ATTEND Nurse Practitioner Family
DX: M81.0 Age-related osteoporosis without current pathological fracture (principal)